=== PATIENT | male | born 1970 | race African-American/Black ===

== ENCOUNTER 2018-09-30 12:13 | Inpatient (IN) ==
[2018-09-30 12:43] LABS: BASO# 0.01 X1000 (0.0-0.2); BASO% 0.1 % (0.0-0.8); EOS# 0.01 X1000 (0.0-0.7); EOS% 0.1 % (0.0-10.0); HEMOGLOBIN 17.8 g/dL (14.0-18.0); IMM GRAN# 0.02 X1000 (0.0-0.04); IMM GRAN% 0.2 % (0.0-0.5); LYMPH# 0.39 X1000 (1.2-3.4); LYMPH% 3.1 % (20.5-51.1); MCH 32.4 PG (27-31); MCHC 34.2 g/dL (33-37); MCV 94.7 FL (81-99); MONO# 0.36 X1000 (0.11-0.59); MONO% 2.9 % (1.7-9.3); MPV 11.4 FL (7.4-10.4); NEUT# 11.81 X1000 (1.4-6.5); NEUT% 93.6 % (42.2-75.2); PLT 255 X1000 (130-400); RBC 5.49 XMIL (4.7-6.1); RDW 11.8 % (11.5-14.5)
[2018-09-30 12:57] LABS: AGAP 14; ALB/GLOB RATIO 1.6; ALKALINE PHOSPHATASE 100 U/L (32-122); BUN 10 mg/dL (8-22); CALCIUM 9.7 mg/dL (8.8-10.2); CHLORIDE 96 mmol/L (98-107); COSMO 290; CREATININE 1.1 mg/dL (0.7-1.2); ESTIMATED GFR > 60; GLUCOSE 244 mg/dL (70-104); GOT 14 U/L (10-34); GPT 18 U/L (10-44); LIPASE 186 U/L (13-60); POTASSIUM 3.8 mmol/L (3.5-5.1); SODIUM 142 mmol/L (136-145); TCO2 32 mmol/L (25-35); TOTAL BILIRUBIN 0.95 mg/dL (0.20-1.00); TOTAL PROTEIN 8.1 g/dL (6.3-8.3)
[2018-09-30 13:12] LABS: LYMPHS 2 % (21-51); MONO 2 % (1-9); SEGS 96 % (42-75)
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
[2018-09-30] MEDS ORDERED: ZOFRAN IV ONE (14:39)
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
[2018-09-30] MEDS ORDERED: TORADOL IV ONE (15:31)
[2018-09-30] MEDS ORDERED: G.I. COCKTAIL PO ONE (15:51)
--- NOTE | 2018-09-30 16:11 | EKG Report ---
Test Performed on : 09/30/2018 3:40:41 PM Test Reason : CP Blood Pressure : / mmHG Vent. Rate : 063 BPM Atrial Rate : 063 BPM P-R Int : 152 ms QRS Dur : 072 ms QT Int : 590 ms P-R-T Axes : 043 053 064 degrees QTc Int : 603 ms Normal sinus rhythm. Septal infarct , age undetermined Prolonged QT Abnormal ECG When compared with ECG of 01-MAR-2018 07:41, Septal infarct is now present QT has lengthened Unconfirmed Result
[2018-09-30 16:13] LABS: URINE SOURCE CLEAN CATCH
[2018-09-30 16:26] LABS: BILIRUBIN URINE NEGATIVE (NEGATIVE); BLOOD URINE NEGATIVE (NEGATIVE); COLOR YELLOW; GLUCOSE URINE 500 mg/dL (NEGATIVE); KETONE URINE NEGATIVE (NEGATIVE); LEUKOCYTES URINE NEGATIVE (NEGATIVE); NITRITE URINE NEGATIVE (NEGATIVE); PROTEIN URINE 200 mg/dL (NEGATIVE); TURBIDITY URINE CLEAR (CLEAR); UROBILINOGEN URINE NORMAL (NORMAL)
[2018-09-30 16:28] LABS: UR EPITHELIAL CELLS <10 /HPF (<10); URINE BACTERIA NEGATIVE /HPF; URINE RBC <10 /HPF (<10); URINE WBC <10 /HPF (<10)
[2018-09-30 16:42] LABS: UR AMPHETAMINES QUAL NONE DETECTED (NONE DETECT); UR BARBITUATES QUAL NONE DETECTED (NONE DETECT); UR BENZODIAZEPIN QUAL NONE DETECTED (NONE DETECT); UR CANNABINOIDS QUAL PRESUMPTIVE POSITIVE (NONE DETECT); UR COCAINE QUAL PRESUMPTIVE POSITIVE (NONE DETECT); UR METHADONE QUAL NONE DETECTED (NONE DETECT); UR OPIATES QUAL NONE DETECTED (NONE DETECT); UR OXYCODONE QUAL NONE DETECTED (NONE DETECT); UR PCP QUAL NONE DETECTED (NONE DETECT)
[2018-09-30] MEDS ORDERED: PHENERGAN IV ONE (16:53)
[2018-09-30] MEDS ORDERED: SODIUM CHLORIDE 0.9% INJ ONE (16:53)
[2018-09-30] MEDS ORDERED: LR 1,000 ML IV ONE (16:54)
[2018-09-30] MEDS ORDERED: APRESOLINE IV ONE (18:06)
[2018-09-30] MEDS ORDERED: LOPRESSOR IV SCH (19:00)
--- NOTE | 2018-09-30 19:18 | HISTORY AND PHYSICAL ---
HISTORY OF PRESENT ILLNESS: Mr. Mckay is a 48-year-old male with a history of alcohol abuse, hypertension, and diabetes mellitus type 2, who presented to the ER with a chief complaint of a 1- week history of abdominal pain, nausea and vomiting. The patient reports a poor appetite. He states that he drinks alcohol on the weekends and smokes cigarettes occasionally. The patient has not been able to keep anything down as far as fluids or solids. He denies having chest pain, shortness of breath, but he does complain of headache and dizziness. He also states that he has not been urinating as much as usual. In the ER, a CT of the abdomen and pelvis was done that revealed mild gastritis. The patient was noted to have a lipase of 186. Also the drug tox screen was positive for cocaine and cannabinoids. PAST MEDICAL HISTORY: 1. Asthma. 2. Gastroesophageal reflux disease. 3. Diabetes mellitus type 2. 4. Hypertension. 5. Tobacco dependence. 6. Alcohol dependence. 7. Benign prostatic hyperplasia. PAST SURGICAL HISTORY: Toenail removal. FAMILY HISTORY: Reviewed and noncontributory. SOCIAL HISTORY: The patient smokes cigarettes daily. He also uses alcohol on the weekends. He denies illicit drug use. However, his drug tox screen was positive for cocaine and cannabinoids. ALLERGIES: No known drug allergies. REVIEW OF SYSTEMS: A 12-point review of systems has been performed. MEDICATIONS: Unable to obtain at this time. PHYSICAL EXAMINATION: VITAL SIGNS: Temperature 98.6 degrees, blood pressure 178/94, heart rate 64, respirations 20, O2 saturation is 95% on 2 L nasal cannula. GENERAL: This is a chronically ill-appearing middle-aged male lying in bed in no acute distress. HEART: S1, S2 normal. Bradycardic. LUNGS: Clear to auscultation bilaterally. ABDOMEN: Positive bowel sounds. Soft. Tenderness in the epigastric region. EXTREMITIES: No edema. No cyanosis. No calf tenderness. NEUROLOGIC: The patient is lethargic, but is able to give move all extremities. LABS: White blood cell count 12, hemoglobin 17, hematocrit 52, platelets 255. Sodium 142, potassium 3.8, chloride 96, CO2 32, BUN 10, creatinine 1.1, glucose 244, lipase 186, lactate 3.2. Drug tox screen positive for cocaine and cannabinoids. IMAGING: CT of the abdomen and pelvis shows mild gastritis and spinal stenosis at L4-L5. Colonic diverticulosis. Chest x-ray shows shallow inspiration. ASSESSMENT AND PLAN: 1. Chronic pancreatitis. We will start the patient on IV fluids. He will be made NPO. We will also start IV Protonix, antiemetics and pain medication. 2. Alcohol dependence. The patient has been counseled about alcohol cessation. 3. Tobacco dependence. The patient has been counseled about tobacco cessation. 4. Diabetes mellitus, insulin dependent. We will start the patient on sliding scale insulin and monitor the Accu-Cheks before meals and at bedtime. 5. Hypertension. Since the patient is NPO, we will cover the patient with IV hydralazine. 6. Leukocytosis. This may be reactive. No obvious source of infection has been found. We will monitor closely. We will hold off on antibiotic administration at this time. 7. Gastrointestinal prophylaxis. The patient will be started on IV Protonix. 8. Deep vein thrombosis prophylaxis. We will start the patient on Lovenox. cc: Gerri Amos MD MTDD
[2018-09-30] MEDS: NS 1,000 ML IV SCH (20:48)
[2018-09-30] MEDS: HUMULIN R SUBQ SCH (21:13)
[2018-09-30] MEDS: APRESOLINE IV PRN (23:01)
[2018-10-01] MEDS: ZOFRAN IV PRN ×4 (02:26→21:46)
[2018-10-01 06:35] LABS: HEMATOCRIT 50.2 % (42.0-52.0); HEMOGLOBIN 17.2 g/dL (14.0-18.0); MCH 33.2 PG (27-31); MCHC 34.3 g/dL (33-37); MCV 96.9 FL (81-99); RBC 5.18 XMIL (4.7-6.1); RDW 12.3 % (11.5-14.5); WBC 14.02 X1000 (4.8-10.8)
[2018-10-01] MEDS: HUMULIN R SUBQ SCH ×4 (06:45→21:51)
[2018-10-01 06:54] LABS: AGAP 17; ALB/GLOB RATIO 1.6; ALBUMIN 4.5 g/dL (3.5-5.0); ALKALINE PHOSPHATASE 85 U/L (32-122); BUN 12 mg/dL (8-22); CALCIUM 9.4 mg/dL (8.8-10.2); CHLORIDE 100 mmol/L (98-107); COSMO 293; CREATININE 1.1 mg/dL (0.7-1.2); ESTIMATED GFR > 60; GLUCOSE 183 mg/dL (70-104); GOT 12 U/L (10-34); GPT 14 U/L (10-44); POTASSIUM 3.4 mmol/L (3.5-5.1); SODIUM 145 mmol/L (136-145); TCO2 28 mmol/L (25-35); TOTAL BILIRUBIN 1.17 mg/dL (0.20-1.00); TOTAL PROTEIN 7.3 g/dL (6.3-8.3)
[2018-10-01] MEDS: SODIUM CHLORIDE 0.9% INJ SCH (07:43)
[2018-10-01] MEDS: PROTONIX IV SCH (07:43)
[2018-10-01] MEDS: APRESOLINE IV PRN (07:43)
[2018-10-01] MEDS: ZOSYN 3.375 GM in NS 50 ML IV SCH ×3 (07:43→19:42)
[2018-10-01] MEDS: NS 1,000 ML IV SCH (09:40)
[2018-10-01] MEDS: POTASSIUM CHLORIDE 20 MEQ/SWI 20 MEQ/100 ML IVPB IV SCH ×2 (09:40→14:06)
[2018-10-01] MEDS: LOVENOX SUBQ SCH (09:41)
[2018-10-01] MEDS ORDERED: THORAZINE 25 MG in NS 25 ML IV ONE (10:00)
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
[2018-10-01] MEDS: DILAUDID IV PRN ×3 (10:31→21:46)
[2018-10-01] MEDS: NICODERM PATCH TD SCH (10:31)
--- NOTE | 2018-10-01 16:24 | GASTROENTEROLOGY CONSULTATION ---
DATE: 10/01/2018 REASON FOR CONSULTATION: Abdominal pain, pancreatitis. HISTORY OF PRESENT ILLNESS: This is a 48-year-old male who reports onset of symptoms over the last 24 hours. He has reported nausea, vomiting and abdominal pain. His girlfriend is at the bedside. The patient states his symptoms started on Monday evening around 10 p.m., progressed through the day on Monday and he came in for evaluation. Patient states so far today he has had a small amount of vomiting at least 5 times. Abdominal pain has improved with pain medication. At the worst pain he described the pain on a pain scale of 1 to 10 as a 20. Currently after pain medication he reports the pain level as a 7. The patient has never been seen by a china painter. He has denied reflux or heartburn. No reported chest pain or shortness of breath. He does report alcohol use along with daily marijuana use. His drug screen was positive for cocaine and marijuana. Patient still has his gallbladder. PAST MEDICAL HISTORY: Diabetes type 2, hypertension, benign prostatic hypertrophy, history of asthma, history of GERD. PAST SURGICAL HISTORY: Toenail removal. ALLERGIES: No known drug allergies. HOME MEDICATIONS: Xanax 1 mg twice a day, Flexeril 10 mg twice a day, [place] 10/325 mg 1 twice a day, insulin NovoLog 35 units subcu before breakfast, NovoLog 60 units before supper, Glucophage 500 mg twice a day, Prilosec 20 mg daily, Flomax 0.4 mg daily. SOCIAL HISTORY: He has 8 children. He works in [employer]. He smokes about a pack of cigarettes every 2 days. Reports using alcohol usually on the weekends. Reports marijuana use almost daily. Denies usual cocaine use but his drug screen was positive. He states he was around someone this weekend that used cocaine. REVIEW OF SYSTEMS: Per history of present illness. PHYSICAL EXAMINATION: Vital Signs: Temperature 98.3 degrees, pulse 111, respirations 20, blood pressure 141/88. General: Patient is awake, alert, in no acute distress. HEENT: Normocephalic, atraumatic. Pupils equal, round, reactive to light. Respiratory: Lung sounds essentially clear bilaterally. Cardiovascular: Regular rate and rhythm. Abdomen: Was mildly tender with palpation otherwise soft with positive bowel sounds. Extremities: No lower extremity edema noted. He did have some tenderness to the left foot with palpation. Neurological: Cranial nerves 2-12 grossly intact. The patient is awake, alert, oriented to person, place, and time. DIAGNOSTIC RESULTS: Laboratory. Hematology. WBC 14.02, hemoglobin 17.2, hematocrit 50.2, MCV 96.9, platelets 259,000. Chemistry. Sodium 145, potassium 3.4, chloride 100, CO2 28, BUN 12, creatinine 1.1, glucose 183, calcium 9.4, total bilirubin 1.17, AST 12, ALT 14, alkaline phosphatase 85, lipase 204. PSA 0.61. CT scan of the abdomen and pelvis showed possible mild gastritis, no bowel obstruction. No evidence of appendicitis. Colonic diverticulosis with no evidence of diverticulitis. No abscess or free air. Lumbar changes to the spine. ASSESSMENT AND PLAN: 1. Abdominal pain. 2. Pancreatitis. Patient will be held n.p.o. except for sips of water and ice chips. 3. Diabetes. 4. Hypertension. 5. Alcohol and tobacco use along with marijuana use. Drug screen also positive for cocaine. Continue symptomatic treatment. Continue p.r.n. medications for pain. We will order an ultrasound of the abdomen with attention to gallbladder and common bile duct. Repeat amylase and lipase tomorrow. Further plans will be made according to his progress. I have discussed this case with Dr. Méndez. Thank you for this consultation. Dictated by MANDY Rojas for Thiago Méndez MD cc: MANDY Herbert MD
--- NOTE | 2018-10-01 16:54 | Diag Imaging Result Doc PS360 ---
EXAM: US ABDOMEN-COMPLETE 10/01/2018 HISTORY: abd pain, pancreatitis, attn gb/cbd TECHNIQUE: Abdominal ultrasound COMMENT: The pancreatic head and body are normal in appearance. The tail is obscured. The aorta and inferior vena cava are normal in appearance where they're visible. The liver is unremarkable. The gallbladder is clear and nontender. The common bile duct is not distended at less than 6 mm. There is antegrade flow in the portal vein. The kidneys are without evidence of hydronephrosis or mass. The spleen is not enlarged and contains multiple granulomata. There are no abnormal fluid collections. IMPRESSION: No evidence of acute intraabdominal disease. Electronically signed by Douglas Nash 10/01/2018 4:51 PM
--- NOTE | 2018-10-01 17:50 | PROGRESS NOTE ---
DATE: 10/01/2018 SUBJECTIVE: The patient complains of epigastric pain as well as nausea. OBJECTIVE: Vital Signs: Temperature 98.1 degrees, blood pressure 140/74, heart rate 87, respirations 20, O2 saturation 100% on room air. General: This is a middle-aged male sitting at the edge of the bed in no acute distress. Heart: S1, S2 normal. Regular rate and rhythm. Lungs: Equal air entry bilaterally. No wheezing. No rales. No rhonchi. Abdomen: Positive bowel sounds. Soft. Epigastric tenderness. Extremities: No edema. No cyanosis. Neurologic: The patient is alert and oriented x4. LABORATORY DATA: White blood cell count 14, hemoglobin 17, hematocrit 50, platelets 259,000, sodium 145, potassium 3.4, chloride 100, CO2 28, BUN 12, creatinine 1.1, glucose 183. ASSESSMENT AND PLAN: 1. Pancreatitis. Continue with n.p.o. status, IV fluids, p.r.n. antiemetics and pain medication. GI is following. 2. Polysubstance abuse. The patient has been counseled about cessation. 3. Hypertension. Stable. 4. Diabetes mellitus type 2. Continue on sliding scale insulin. 5. Gastrointestinal prophylaxis. Continue on Protonix. 6. Deep vein thrombosis prophylaxis. Continue on Lovenox. cc: Gerri Amos MD
[2018-10-02] MEDS: ZOSYN 3.375 GM in NS 50 ML IV SCH ×4 (00:03→18:27)
[2018-10-02] MEDS: NS 1,000 ML IV SCH ×3 (00:04→20:40)
[2018-10-02] MEDS: DILAUDID IV PRN ×6 (02:14→20:33)
[2018-10-02] MEDS: ZOFRAN IV PRN ×3 (02:14→20:33)
[2018-10-02 04:38] LABS: ALLEN TEST YES; BE 3.1 mmoll (-3.0-3.0); BLOOD TYPE ARTERIAL; HCO3-(ACT) 27.2 mmoll (20.0-26.0); METHB 1.1 % (0.0-1.5); MODALITY ROOM AIR; O2(CT) 20.9 mL/dL (15.0-23.0); O2HB 92.8 % (95.0-99.0); PCO2(98.6) 45 mmHg (35-45); PO2(98.6) 73 mmHg (60-100); SAMPLE BLOOD; SAO2 96.3 % (95.0-100.0); pH(98.6) 7.41 (7.35-7.45)
[2018-10-02 06:04] LABS: HEMATOCRIT 45.7 % (42.0-52.0); HEMOGLOBIN 15.3 g/dL (14.0-18.0); MCH 33.6 PG (27-31); MCHC 33.5 g/dL (33-37); MCV 100.2 FL (81-99); MPV 11.8 FL (7.4-10.4); RBC 4.56 XMIL (4.7-6.1); RDW 12.4 % (11.5-14.5); WBC 7.95 X1000 (4.8-10.8)
[2018-10-02 06:12] LABS: MAGNESIUM 1.9 mg/dL (1.5-2.7)
[2018-10-02] MEDS: HUMULIN R SUBQ SCH ×3 (06:30→16:51)
[2018-10-02] MEDS: PROTONIX IV SCH (06:40)
[2018-10-02] MEDS: SODIUM CHLORIDE 0.9% INJ SCH (06:40)
[2018-10-02 06:53] LABS: POTASSIUM 3.4 mmol/L (3.5-5.1); SODIUM 141 mmol/L (136-145)
[2018-10-02 06:54] LABS: AGAP 13; ALB/GLOB RATIO 1.4; ALBUMIN 3.6 g/dL (3.5-5.0); ALKALINE PHOSPHATASE 68 U/L (32-122); BUN 12 mg/dL (8-22); CALCIUM 8.6 mg/dL (8.8-10.2); CHLORIDE 103 mmol/L (98-107); COSMO 284; CREATININE 1.1 mg/dL (0.7-1.2); ESTIMATED GFR > 60; GLUCOSE 149 mg/dL (70-104); GOT 13 U/L (10-34); GPT 12 U/L (10-44); TCO2 25 mmol/L (25-35); TOTAL BILIRUBIN 1.74 mg/dL (0.20-1.00); TOTAL PROTEIN 6.2 g/dL (6.3-8.3)
[2018-10-02] MEDS: LOVENOX SUBQ SCH ×2 (07:51→08:12)
[2018-10-02] MEDS: NICODERM PATCH TD SCH ×2 (07:51→08:12)
[2018-10-02] MEDS ORDERED: COLACE PO ONE (09:21)
[2018-10-02] MEDS: FLOMAX PO SCH (09:59)
[2018-10-02] MEDS: NORVASC PO SCH ×2 (09:59→20:32)
[2018-10-02] MEDS: MIRALAX PO SCH (10:00)
[2018-10-02] MEDS: XANAX PO SCH ×2 (10:00→20:32)
--- NOTE | 2018-10-02 12:51 | GASTROENTEROLOGY PROGRESS NOTE ---
DATE: 10/02/2018 SUBJECTIVE: Patient states he is still having abdominal pain. An ultrasound was done yesterday that was normal. There was no evidence of gallbladder abnormality. Common bile duct was normal. There was no evidence of acute intra-abdominal disease. His amylase and lipase are normal today. OBJECTIVE: Vital Signs: Temperature 98.0 degrees, pulse 80, respirations 16, blood pressure 135/88. General: Patient is awake, alert, no acute distress. He is complaining of abdominal pain. LABORATORY: Hematology: WBC 7.95, hemoglobin 15.3, hematocrit 45.7, MCV 100.2, platelets 211,000. Chemistry: Sodium 141, potassium 3.4, chloride 103, CO2 25, BUN 12, creatinine 1.1, glucose 149, calcium 8.6, total bilirubin 1.74, AST 13, ALT 12, alkaline phosphatase 68, amylase 56, lipase 21. ASSESSMENT AND PLAN: 1. Pancreatitis. Amylase and lipase are normal today. 2. Abdominal pain. Would recommend decreasing his pain medication. 3. Other medical problems: Hypertension, diabetes. Continue on IV fluids, p.r.n. medications but recommend decreasing his pain medication if possible. Repeat amylase and lipase tomorrow. Discussed with the patient importance of stopping alcohol along with marijuana and cocaine use, and including alcohol cessation and smoking cessation. Will continue to follow. Further plans to be made according to his progress. I have discussed this case with Dr. Méndez. Dictated by MANDY Rojas for Thiago Méndez MD cc: MANDY Herbert MD
--- NOTE | 2018-10-02 13:43 | PROGRESS NOTE ---
DATE: 10/02/2018 SUBJECTIVE: The patient continues to complain of epigastric pain. He states that he has not had a bowel movement in several days. He also reports some nausea. OBJECTIVE: Vital Signs: Temperature 98 degrees, blood pressure 135/88, heart rate 80, respirations 16, O2 saturation 98% on room air. General: This is a middle-aged male sitting up in bed in no acute distress. Heart: S1, S2 normal. Regular rate and rhythm. Lungs: Equal air entry bilaterally. No wheezing. No rales. No rhonchi. Abdomen: Positive bowel sounds. Soft, nontender, nondistended. Extremities: No edema, no cyanosis. Neurologic: The patient is alert and oriented x3. LABS: White blood cell count 7.9, hemoglobin 15, hematocrit 45, platelets 211,000. Sodium 141, potassium 3.4, chloride 103, CO2 25, BUN 12, creatinine 1.1, glucose 149, magnesium 1.9. ASSESSMENT AND PLAN: 1. Pancreatitis. Slowly improving. We will try the patient on clear liquids and see how he does. 2. Polysubstance abuse. The patient has been counseled about cessation. 3. Constipation. Will start the patient on MiraLAX and Colace. 4. Hypertension. Stable. 5. Diabetes mellitus type 2. Continue on insulin sliding scale for now. 6. Deep vein thrombosis prophylaxis. Continue on Lovenox. cc: Gerri Amos MD MTDD
[2018-10-03] MEDS: ZOSYN 3.375 GM in NS 50 ML IV SCH ×2 (01:03→06:05)
[2018-10-03] MEDS: DILAUDID IV PRN ×7 (01:03→21:32)
[2018-10-03] MEDS: HUMULIN R SUBQ SCH ×5 (01:04→20:13)
[2018-10-03] MEDS: NS 1,000 ML IV SCH ×3 (05:53→20:34)
[2018-10-03] MEDS: ZOFRAN IV PRN (05:55)
[2018-10-03 05:57] LABS: HEMOGLOBIN 14.9 g/dL (14.0-18.0); MCH 33.7 PG (27-31); MCHC 34.7 g/dL (33-37); MCV 97.3 FL (81-99); MPV 11.3 FL (7.4-10.4); RBC 4.42 XMIL (4.7-6.1); RDW 11.6 % (11.5-14.5); WBC 5.73 X1000 (4.8-10.8)
[2018-10-03 06:23] LABS: AGAP 11; ALB/GLOB RATIO 1.4; ALBUMIN 3.4 g/dL (3.5-5.0); ALKALINE PHOSPHATASE 58 U/L (32-122); BUN 8 mg/dL (8-22); CALCIUM 8.5 mg/dL (8.8-10.2); CHLORIDE 103 mmol/L (98-107); COSMO 279; ESTIMATED GFR > 60; GLUCOSE 128 mg/dL (70-104); GOT 14 U/L (10-34); GPT 12 U/L (10-44); POTASSIUM 3.4 mmol/L (3.5-5.1); SODIUM 140 mmol/L (136-145); TCO2 26 mmol/L (25-35); TOTAL BILIRUBIN 1.44 mg/dL (0.20-1.00); TOTAL PROTEIN 5.9 g/dL (6.3-8.3)
[2018-10-03] MEDS: PROTONIX IV SCH (06:23)
[2018-10-03] MEDS ORDERED: KLOR-CON PO ONE (06:45)
[2018-10-03] MEDS: NORVASC PO SCH ×2 (10:03→20:27)
[2018-10-03] MEDS: XANAX PO SCH ×2 (10:03→20:27)
[2018-10-03] MEDS: FLOMAX PO SCH (10:04)
[2018-10-03] MEDS: MIRALAX PO SCH ×2 (10:04→20:27)
[2018-10-03] MEDS: NICODERM PATCH TD SCH (10:04)
[2018-10-03] MEDS: LOVENOX SUBQ SCH (10:05)
[2018-10-03] MEDS ORDERED: LACTULOSE PO ONE (11:07)
[2018-10-03] MEDS ORDERED: DULCOLAX PR ONE (11:08)
[2018-10-03] MEDS ORDERED: CITRATE OF MAGNESIA PO ONE (11:09)
--- NOTE | 2018-10-03 14:34 | Diag Imaging Result Doc PS360 ---
EXAM: MRI LUMBAR SPINE W/O CONTRAST 10/03/2018 HISTORY: lumbar radiculopathy TECHNIQUE: T1-T2 and STIR sagittal, T1 and T2 axial COMMENT: There is disc desiccation at the L4-5 and L5-S1 levels. There is no evidence of intrathecal mass or signal abnormality. At the L1-2 level there is no evidence of spinal or foraminal stenosis. At L2-3 there is no spinal or foraminal stenosis. At L3-4 there is no evidence of spinal or foraminal stenosis. At L4-5 there is minimal anterolisthesis of L4 on L5 and hypertrophic facet disease is present bilaterally. There is a mild degree of spinal stenosis. The foramina appear to be patent. At the L5-S1 level there is posterior disc bulge particularly slightly to the right of the midline. The foramina are narrowed bilaterally. IMPRESSION: Degenerative disc disease with severe facet arthropathy and mild spondylolisthesis and spinal stenosis at L4-5 and protruded nucleus pulposus at L5-S1 with bilateral foraminal stenosis. Electronically signed by Douglas Nash 10/03/2018 2:32 PM
[2018-10-03] MEDS: NEURONTIN PO SCH ×2 (15:14→18:49)
--- NOTE | 2018-10-03 15:23 | PROGRESS NOTE ---
DATE: 10/03/2018 SUBJECTIVE: The patient states that he has not had a bowel movement in a week. He continues to complain of abdominal pain, numbness and tingling in his feet. OBJECTIVE: Vital Signs: Temperature 98 degrees, blood pressure 164/99, heart rate 77, respirations 14, and O2 saturation 99% on room air. General: This is a middle- aged male sitting in a chair in no acute distress. Heart: S1, S2 normal. Regular rate and rhythm. Lungs: Equal air entry bilaterally. No wheezing. No rales. No rhonchi. Abdomen: Positive bowel sounds. Soft, nontender, and nondistended. Extremities: No edema. No cyanosis. No calf tenderness. Neurologic: The patient is alert and oriented x4. LABORATORY: Sodium 140, potassium 3.4, chloride 103, CO2 26, BUN 8, creatinine 1, glucose 128, and lipase 45. MRI of the lumbar spine revealed degenerative disk disease with severe facet arthropathy and spinal stenosis at L4-L5, and a protruded nucleus pulposus at L5-S1 with bilateral foraminal stenosis. ASSESSMENT AND PLAN: 1. Pancreatitis. Improved. The patient is currently on a clear liquid diet. He has not had a bowel movement yet. We will add additional laxative therapy. 2. Chronic constipation. Several laxatives have been started. We will monitor the patient's response. 3. Hypertension. We will start the patient on lisinopril. 4. Diabetic neuropathy. We will start the patient on gabapentin. 5. Lumbar spinal stenosis. Aware. The patient will likely need to be referred to neurosurgeon as an outpatient. 6. Polysubstance abuse. The patient has been counseled about cessation. 7. Hypokalemia. Will replace the potassium. 8. Diabetes mellitus type 2. Continue on sliding scale insulin. 9. Deep vein thrombosis prophylaxis. Continue on Lovenox. cc: Gerri Amos MD MTDD
[2018-10-03] MEDS: LACTULOSE PO SCH (20:27)
--- NOTE | 2018-10-03 20:49 | GASTROENTEROLOGY PROGRESS NOTE ---
DATE: 10/03/2018 SUBJECTIVE: The patient was up walking around in his room. He is still complaining of pain, but reports it is more of back pain and lower extremity pain. His abdominal pain seems to have improved, except he is complaining of constipation. He has not had a good bowel movement in approximately a week. He was started on some laxatives yesterday with no results. He already has additional laxatives ordered today, including magnesium citrate, along with lactulose and a Dulcolax suppository. His amylase and lipase are normal today. He has tolerated a clear liquid diet. OBJECTIVE: Vital Signs: Temperature 98.0 degrees, pulse 77, respirations 14, blood pressure 164/99. General: The patient is awake and alert in no acute distress. He was up walking in the room at the time of my evaluation. He is complaining more of back pain and lower extremity pain and issues with constipation. LABORATORY: Hematology: WBC 5.73, hemoglobin 14.9, hematocrit 43.0, MCV 97.3, platelet 198,000. Chemistry: Sodium 140, potassium 3.4, chloride 103, CO2 26, BUN 8, creatinine 1.0, glucose 128, total bilirubin 1.44, AST 14, ALT 12, alkaline phosphatase 58, amylase 65, lipase 45. ASSESSMENT AND PLAN: 1. Pancreatitis, resolved. 2. Constipation. Patient has been given laxatives today. Recommend he try and decrease his pain medication. Another option would be opioid induced constipation medication like Movantik if his constipation does not improve. 3. Back pain with a lumbar spine MRI showing degenerative disk disease, with severe arthropathy and spinal stenosis. Hospitalist is following. 4. We will continue to follow during his hospital course. Continue current laxative regimen and would add Movantik if there is no improvement. Recommend decreasing his pain medication to the least amount possible. We will try advancing his diet to a full liquid diet if he tolerates. Further plans will be made as needed. I have discussed this case with Dr. Méndez. Dictated by MANDY Rojas for Thiago Méndez MD cc: MANDY Herbert MD
[2018-10-03] MEDS ORDERED: COREG PO SCH (21:00)
[2018-10-04] MEDS ORDERED: ATIVAN IV ONE (00:33)
[2018-10-04 06:09] LABS: HEMOGLOBIN 15.9 g/dL (14.0-18.0); MCH 33.8 PG (27-31); MCHC 35.3 g/dL (33-37); MCV 95.7 FL (81-99); MPV 11.5 FL (7.4-10.4); RBC 4.7 XMIL (4.7-6.1); RDW 11.4 % (11.5-14.5); WBC 5.47 X1000 (4.8-10.8)
[2018-10-04 06:31] LABS: AGAP 12; ALBUMIN 4.2 g/dL (3.5-5.0); BUN 10 mg/dL (8-22); CALCIUM 9.1 mg/dL (8.8-10.2); CHLORIDE 102 mmol/L (98-107); COSMO 279; CREATININE 1.1 mg/dL (0.7-1.2); ESTIMATED GFR > 60; GLUCOSE 182 mg/dL (70-104); POTASSIUM 3.9 mmol/L (3.5-5.1); SODIUM 138 mmol/L (136-145); TCO2 24 mmol/L (25-35); TOTAL BILIRUBIN 0.66 mg/dL (0.20-1.00); TOTAL PROTEIN 7.4 g/dL (6.3-8.3)
[2018-10-04 06:32] LABS: ALB/GLOB RATIO 1.3; ALKALINE PHOSPHATASE 75 U/L (32-122); GOT 23 U/L (10-34); GPT 22 U/L (10-44)
[2018-10-04] MEDS: HUMULIN R SUBQ SCH ×3 (06:54→16:25)
[2018-10-04] MEDS: PROTONIX IV SCH (06:54)
[2018-10-04] MEDS: DILAUDID IV PRN ×2 (07:23→14:19)
[2018-10-04] MEDS ORDERED: PRINIVIL PO SCH (09:00)
[2018-10-04] MEDS: MIRALAX PO SCH (09:09)
[2018-10-04] MEDS: NORVASC PO SCH (09:09)
[2018-10-04] MEDS: XANAX PO SCH (09:09)
[2018-10-04] MEDS: NEURONTIN PO SCH ×3 (09:09→18:38)
[2018-10-04] MEDS: FLOMAX PO SCH (09:09)
[2018-10-04] MEDS: LOVENOX SUBQ SCH (09:10)
[2018-10-04] MEDS: LACTULOSE PO SCH (09:10)
[2018-10-04] MEDS: NICODERM PATCH TD SCH (09:10)
[2018-10-04] MEDS: ZOFRAN IV PRN (14:19)
[2018-10-04] MEDS: NS 1,000 ML IV SCH ×2 (14:29→14:30)
[2018-10-04 15:31] VITALS: BP 138/122
--- NOTE | 2018-10-04 17:25 | PROGRESS NOTE ---
DATE: 10/04/2018 SUBJECTIVE: This morning Mr. Mckay refers to be doing fairly okay. He has been tolerating his full liquid diet. OBJECTIVE: Vital signs: Blood pressure is 138/112, pulse is 82, respirations 18, temperature 98.0 degrees. Patient is saturating 100% on room air. General: Mr. Mckay is a 48-year-old gentleman. He is in bed, no distress. HEENT: Mucosa is pink and moist. Anicteric. Acyanotic. Neck: Supple. Chest: Clear to auscultation. Cardiovascular: Regular rate and rhythm. Abdomen: Soft, distended. Bowel sounds present. Extremities: No pedal edema. FLOOR COVERING LAYER: Patient is awake, alert, and oriented. LABORATORY DATA: Has been reviewed, completely normal. Lipase has normalized, currently at 27. The patient's urine toxicology was positive for cocaine and cannabis. A lumbar MRI which was done yesterday shows degenerative disease with severe facet arthropathy with mild spondylolisthesis and spinal stenosis at L4-L5, protrude nucleus proposes at L5-S1, and bilateral foraminal stenosis. ASSESSMENT: 1. Suspected alcohol-induced pancreatitis, resolved. 2. Chronic constipation, improved. 3. Diabetes with diabetic neuropathy. 4. Polysubstance abuse with urine drug screen positive for cocaine and cannabinoids. 5. Lumbar spine diskopathy with spinal stenosis. Currently patient does not have any neurological compromise and he has been advised to follow up with neurosurgery upon discharge. PLAN: So in general, I think Mr. Mckay is doing a lot better. We are going to put him on a regular diet, discontinue the IV fluids, get him to be more mobile, and we will get him discharged tomorrow morning. cc: Enrico Britton MD
[2018-10-04] MEDS ORDERED: DILAUDID IV PRN (18:00)
[2018-10-04] MEDS ORDERED: PRILOSEC PO SCH (21:00)
--- NOTE | 2018-10-05 09:37 | DISCHARGE SUMMARY ---
ADMISSION DATE: 09/30/2018 DISCHARGE DATE: 10/04/2018 DISPOSITION: Home FOLLOWUP: 1. Dr. Hanley 2. Dr. Joel ADMISSION DIAGNOSES: 1. Chronic pancreatitis. 2. Alcohol dependence. 3. Tobacco dependence. 4. Diabetes mellitus. DIAGNOSES AT THE TIME OF DISCHARGE: 1. Acute on chronic pancreatitis. 2. Alcohol-induced pancreatitis. 3. Alcohol abuse. 4. Diabetic with diabetic neuropathy. 5. Polysubstance abuse with urine drug screen positive for cocaine and cannabinoids. 6. Hypertension. 7. Lumbar discopathy with spinal stenosis. Patient has been advised to follow up with neurosurgeon. DISCHARGE MEDICATIONS: 1. Xanax 1 mg b.i.d. 2. Flexeril 10 mg b.i.d. 3. Omeprazole 20 mg p.o. daily. 4. Tamsulosin 0.4 p.o. daily. 5. Metformin 500 b.i.d. 6. Lisinopril 10 mg p.o. daily. 7. Amlodipine 2.5 b.i.d. 8. Insulin glargine 15 units subcutaneous daily. PRESENTING COMPLAINT: Abdominal pain. HISTORY OF PRESENTING COMPLAINT: Mr. Mckay is a 48-year-old gentleman with a history of diabetes, alcohol dependence, tobacco dependence, pancreatitis in the past, came in because of abdominal pain. The patient was evaluated was found to be to have a lipase of 186, diagnosed with acute on chronic pancreatitis and was admitted for further medical care. HOSPITAL COURSE: 1. Mr. Mckay was admitted to the medical floor, was fluid resuscitated. Pain was controlled. He was kept initially NPO and his pancreatitis got better. Lipase was trended, that got normalized. He was started on some clears, which was gradually uptitrated. He is currently taking full liquid diet and he seems to be tolerating. He is now pain free. Early on today, we saw him. We thought he could be discharged. However, he was saying nobody could come and pick him up. However later on he said a family member is coming for him and we think he is fairly stable for discharge. During the hospital course, all his other comorbidities including hypertension were all echo managed. Mr. Mckay also did complain of some back pain. An MRI of the lumbar spine was done which shows degenerative discopathy with some spinal stenosis at L4-L5-L5-S1. He is currently completely neurovascularly intact except for some polyneuropathy from his diabetes, so he has been advised to follow up with the neurosurgeon in [place] as outpatient. 2. Other discharge instructions have been discussed with him. He voiced understanding. TIME SPENT FOR DISCHARGE: 35 minutes. Please refer to the details of my progress note as well for today. cc: MD Esteban Hancock MD Manish Arora, MD
== END 2018-10-04 19:16 | disposition home or self-care (01) | DRG 439 ==
LOC: ED 12:13 → 4N 20:24 → SUATTDRO 20:24
PROVIDERS: ATTEND Internal Medicine

== ENCOUNTER 2018-10-11 04:03 | Inpatient (IN) ==
[2018-10-11] MEDS ORDERED: NS 1,000 ML IV ONE ×2 (04:15→05:58)
[2018-10-11] MEDS ORDERED: MORPHINE IV ONE (04:15)
[2018-10-11] MEDS ORDERED: ZOFRAN IV ONE ×2 (04:16→08:19)
[2018-10-11 04:46] LABS: BASO# 0.06 X1000 (0.0-0.2); BASO% 0.7 % (0.0-0.8); EOS# 0.72 X1000 (0.0-0.7); HEMATOCRIT 49.7 % (42.0-52.0); HEMOGLOBIN 16.7 g/dL (14.0-18.0); IMM GRAN# 0.02 X1000 (0.0-0.04); IMM GRAN% 0.2 % (0.0-0.5); LYMPH# 2.75 X1000 (1.2-3.4); LYMPH% 30.5 % (20.5-51.1); MCH 32.7 PG (27-31); MCHC 33.6 g/dL (33-37); MCV 97.3 FL (81-99); MONO# 0.69 X1000 (0.11-0.59); MONO% 7.6 % (1.7-9.3); MPV 11.5 FL (7.4-10.4); NEUT# 4.79 X1000 (1.4-6.5); PLT 240 X1000 (130-400); RBC 5.11 XMIL (4.7-6.1); RDW 11.7 % (11.5-14.5); WBC 9.03 X1000 (4.8-10.8)
[2018-10-11 05:13] LABS: INR 0.85
[2018-10-11 05:14] LABS: PTT 28.3 Seconds (22.3-41.8)
[2018-10-11 05:23] LABS: ALBUMIN 4.8 g/dL (3.5-5.0); CALCIUM 9.1 mg/dL (8.8-10.2); CREATININE 1.4 mg/dL (0.7-1.2); POTASSIUM 4.2 mmol/L (3.5-5.1); TOTAL BILIRUBIN 0.5 mg/dL (0.20-1.00); TOTAL PROTEIN 8.2 g/dL (6.3-8.3)
[2018-10-11] MEDS ORDERED: NS 700 ML IV ONE (05:58)
[2018-10-11] MEDS ORDERED: ZOSYN 3.375 GM in NS 50 ML IV ONE (06:00)
[2018-10-11 06:24] LABS: BILIRUBIN URINE NEGATIVE (NEGATIVE); BLOOD URINE NEGATIVE (NEGATIVE); CLARITY CLEAR (CLEAR); COLOR YELLOW; KETONE URINE TRACE mg/dL (NEGATIVE); LEUKOCYTES URINE TRACE (NEGATIVE); NITRITE URINE NEGATIVE (NEGATIVE); PROTEIN URINE TRACE mg/dL (NEGATIVE); SP GRAVITY URINE 1.015; UROBILINOGEN URINE NORMAL
[2018-10-11 06:27] LABS: URINE BACTERIA 1+ /HFP; URINE CAST NONE SEEN /LPF; URINE CRYSTAL NONE SEEN /HPF; URINE EPITHELIAL CELLS <10 /HPF (<10); URINE RBC <10 /HPF (<10); URINE SOURCE CLEAN CATCH; URINE WBC <10 /HPF (<10); URINE YEAST NONE SEEN /HPF
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
[2018-10-11] MEDS ORDERED: APRESOLINE IV ONE (08:11)
--- NOTE | 2018-10-11 08:38 | Diag Imaging Result Doc PS360 ---
EXAM: CHEST-1 VIEW - 10/11/2018 HISTORY: sepsis protocol TECHNIQUE: One view chest COMPARISON: 10/01/2018 FINDINGS: Heart size is normal. Inspiration is mildly shallow. There are stable calcified right tracheobronchial lymph nodes from old granulomatous disease. Lungs otherwise appear essentially clear. There is no pleural effusion or pneumothorax identified. There are tiny metallic fragments over the right lung which are stable. IMPRESSION: Mildly shallow inspiration. No other evidence of acute disease. Electronically signed by Keny Vigil 10/11/2018 8:36 AM
[2018-10-11] MEDS: APRESOLINE IV SCH ×4 (09:47→20:35)
[2018-10-11] MEDS: NS 1,000 ML IV SCH ×2 (10:38→16:40)
[2018-10-11] MEDS: ZOSYN 3.375 GM in NS 50 ML IV SCH ×2 (13:13→17:55)
[2018-10-11] MEDS: ZOFRAN IV PRN ×2 (13:24→20:42)
[2018-10-11] MEDS: MORPHINE IV PRN ×2 (13:29→20:42)
--- NOTE | 2018-10-11 19:26 | HISTORY AND PHYSICAL ---
PRIMARY CARE PROVIDER: Esteban Hanley MD. CHIEF COMPLAINT: Abdominal pain. HISTORY OF PRESENT ILLNESS: Mr. Mckay is a 48-year-old, -[place] male, who carries a past medical history of alcohol abuse, hypertension, type 2 diabetes, chronic pancreatitis, who had reported to the ED on 10/10/2018, complaining of back pain and that he was out of his Flexeril and [place] 10 for several days, and had been having intermittent nausea and vomiting since his last discharge on September 30, for an admission for acute on chronic pancreatitis. He reported back to the ED on 10/11/2018, for a recheck. His lipase had gone up to over 600, it was only 200 yesterday, and he was insistent that his last drink was 1 beer on Monday. He was unsure if he had any fever, but he has been profusely sweating. He also had an elevated lactate level, was given IV fluids, and placed on IV Zosyn. We have admitted him to the [place] telemetry floor, and will continue with aggressive IV hydration, empirically with IV Zosyn, pain and antinausea medication, and keep him NPO for now. We will start IV Protonix. Patient ruled in for sepsis. He has a mild urinary tract infection, if one at all, just 1+ bacteria. His chest x-ray did not show any acute disease. May need to do a CT of his abdomen and pelvis. He also does not have a white count. With recheck on his lactate, it went down to 1.4, now back up to 2.7. Continues to be afebrile. PAST MEDICAL HISTORY: 1. Chronic pancreatitis. 2. Alcohol dependence. 3. Tobacco dependence. 4. Diabetes mellitus, insulin dependent. 5. Hypertension. 6. Chronic low back pain. 7. BPH. PAST SURGICAL HISTORY: Toe nail removal. FAMILY HISTORY: Noncontributory. SOCIAL HISTORY: He smokes cigarettes daily. He states his last alcohol was 1 beer on Monday. Denied any illicit drugs. We are checking a toxicology screen. His last toxicology screen was positive for cocaine and cannabinoids. ALLERGIES: No known drug allergies. HOME MEDICATIONS: 1. Clonidine. 2. Flexeril. 3. [place]. 4. Xanax. 5. Basaglar. 6. Flomax. 7. Glucophage. 8. Norvasc. 9. Prilosec. 10. Prinivil. REVIEW OF SYSTEMS: A 12-point review of systems completed and negative, except for those mentioned in the HPI. PHYSICAL EXAMINATION: VITAL SIGNS: Temperature is 97.5 degrees, heart rate 87, respirations 18, blood pressure 177/97, O2 is 97% on room air. GENERAL: Mr. Mckay is a 48-year-old, -[place] male, who is lying on his right side, noticeably sweating, in no acute distress. He is uninterested in being interviewed and will ignore some of my questions. HEENT: Atraumatic, normocephalic. PERRL. NECK: Supple. Trachea midline. CARDIOVASCULAR: S1, S2 appreciated. No murmurs, gallops, rubs noted. RESPIRATORY: Lung sounds clear. GASTROINTESTINAL: Appears to be soft, nontender, nondistended. Positive bowel sounds in 4 quadrants. LOWER EXTREMITIES: Negative for edema. Bilateral pedal pulses are bounding. NEUROLOGIC: The patient is hesitant to answer any questions. However, he does wake up. He will answer some questions, but not all. DIAGNOSTIC DATA: Chest x-ray, no acute disease. LABORATORY DATA: White count 9, hemoglobin and hematocrit 16 and 49, platelet count is 240,000. Sodium 143, potassium 4.2, BUN 17, creatinine 1.4, blood glucose is 160, lipase is 618. Plasma lactate initially 3.1, then 1.4, and back up to 2.7. Urinalysis shows 1+ bacteria. ASSESSMENT AND PLAN: 1. Acute on chronic pancreatitis. We will continue with n.p.o. status, IV fluids, IV Protonix, antiemetics, and pain medication. 2. Probable sepsis. Unsure of the source. We may need a CT of his abdomen to rule out any abscess. However, he does not have a white count nor is he tachycardic or hypotensive. He has just had positive lactates. We will empirically continue with IV Zosyn. 3. Acute kidney injury. We will continue with IV hydration. 4. Alcohol dependence. The patient will need to be counseled when he is more susceptible. 5. Tobacco dependence. Again, will need counseling when he is more susceptible. 6. Diabetes mellitus, insulin dependent. We will place him on patterned blood sugars with sliding scale. 7. Hypertension. We will continue with IV hydralazine. 8. Probable urinary tract infection. He only has 1+ bacteria. Again, we are covering him with IV Zosyn. 9. Further recommendation to follow physician evaluation, laboratory data. Dictated by MANDY Bill for Ger Foreman MD cc: Ger Foreman MD
[2018-10-12] MEDS: MORPHINE IV PRN ×7 (00:42→21:14)
[2018-10-12] MEDS: ZOSYN 3.375 GM in NS 50 ML IV SCH ×4 (00:42→18:03)
[2018-10-12] MEDS: ZOFRAN IV PRN ×6 (00:42→21:14)
[2018-10-12 01:18] LABS: UR AMPHETAMINES QUAL NONE DETECTED (NONE DETECT); UR BARBITUATES QUAL NONE DETECTED (NONE DETECT); UR BENZODIAZEPIN QUAL NONE DETECTED (NONE DETECT); UR CANNABINOIDS QUAL PRESUMPTIVE POSITIVE (NONE DETECT); UR COCAINE QUAL PRESUMPTIVE POSITIVE (NONE DETECT); UR METHADONE QUAL NONE DETECTED (NONE DETECT); UR METHAMPHETAMINE QUAL NONE DETECTED (NONE DETECT); UR OPIATES QUAL NONE DETECTED (NONE DETECT); UR OXYCODONE QUAL NONE DETECTED (NONE DETECT); UR PCP QUAL NONE DETECTED (NONE DETECT); UR PROPOXYPHENE QUAL NONE DETECTED (NONE DETECT); UR TCA QUAL NONE DETECTED (NONE DETECT)
[2018-10-12] MEDS: APRESOLINE IV SCH ×4 (01:31→20:08)
[2018-10-12] MEDS: NS 1,000 ML IV SCH ×3 (03:23→21:14)
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
[2018-10-12 06:41] LABS: BASO# 0.01 X1000 (0.0-0.2); BASO% 0.1 % (0.0-0.8); EOS# 0.04 X1000 (0.0-0.7); EOS% 0.3 % (0.0-10.0); HEMATOCRIT 48.8 % (42.0-52.0); HEMOGLOBIN 16.7 g/dL (14.0-18.0); IMM GRAN# 0.02 X1000 (0.0-0.04); IMM GRAN% 0.2 % (0.0-0.5); LYMPH# 1.39 X1000 (1.2-3.4); LYMPH% 10.7 % (20.5-51.1); MCHC 34.2 g/dL (33-37); MCV 93.5 FL (81-99); MONO# 1.12 X1000 (0.11-0.59); MONO% 8.6 % (1.7-9.3); NEUT# 10.41 X1000 (1.4-6.5); NEUT% 80.1 % (42.2-75.2); PLT 277 X1000 (130-400); RBC 5.22 XMIL (4.7-6.1); RDW 11.2 % (11.5-14.5); WBC 12.99 X1000 (4.8-10.8)
[2018-10-12 07:00] LABS: AGAP 13; ALBUMIN 4.3 g/dL (3.5-5.0); ALKALINE PHOSPHATASE 90 U/L (32-122); BUN 9 mg/dL (8-22); CALCIUM 8.8 mg/dL (8.8-10.2); CHLORIDE 99 mmol/L (98-107); COSMO 280; CREATININE 0.9 mg/dL (0.7-1.2); ESTIMATED GFR > 60; GLUCOSE 175 mg/dL (70-104); GOT 13 U/L (10-34); GPT 18 U/L (10-44); MAGNESIUM 1.7 mg/dL (1.5-2.7); POTASSIUM 3.1 mmol/L (3.5-5.1); SODIUM 139 mmol/L (136-145); TCO2 26 mmol/L (25-35); TOTAL PROTEIN 7.4 g/dL (6.3-8.3)
[2018-10-12] MEDS: NICODERM PATCH TD SCH (10:05)
[2018-10-12] MEDS ORDERED: POTASSIUM CHLORIDE 20 MEQ/SWI 20 MEQ/100 ML IVPB IV ONE (14:00)
--- NOTE | 2018-10-12 19:52 | PROGRESS NOTE ---
DATE: 10/12/2018 SUBJECTIVE: The patient notes he is still having intense abdominal pain with eating or drinking anything. PHYSICAL EXAMINATION: Vital Signs: Temperature 99, pulse 102, respiratory rate 18, blood pressure 150/99. General: Patient is awake, alert, sitting in a chair beside the bed. HEENT: Normocephalic. Neck: Supple. Cardiovascular: Regular rate. Chest: Clear. Nonlabored. Abdomen: Soft, diffusely tender but more so in the epigastric region. Decreased bowel sounds. Extremities: Moves all extremities. Neurologic: No changes. ASSESSMENT: 1. Hypertensive urgency. Blood pressures have improved. 2. Recreational cocaine use, which is likely the cause of his elevated blood pressures. 3. Acute pancreatitis. 4. Hypokalemia. 5. Acute renal failure resolved. 6. Chronic alcohol abuse. 7. Chronic tobacco abuse. 8. Hypertension. PLAN: We will continue patient in the hospital. Again, discussed with him that he needs to remain NPO strictly until his symptoms resolved. We will continue IV fluids, pain control, and will follow. Also discussed with patient the importance of avoiding recreational drug use. cc: Ger Foreman MD
[2018-10-13] MEDS: ZOSYN 3.375 GM in NS 50 ML IV SCH ×5 (00:12→23:22)
[2018-10-13] MEDS: ZOFRAN IV PRN ×5 (01:52→23:48)
[2018-10-13] MEDS: MORPHINE IV PRN ×6 (01:52→23:49)
[2018-10-13] MEDS: APRESOLINE IV SCH ×4 (03:31→20:35)
[2018-10-13] MEDS: NS 1,000 ML IV SCH ×4 (05:58→23:22)
[2018-10-13] MEDS: LACTULOSE PO PRN (06:40)
[2018-10-13 07:36] LABS: AGAP 11; ALBUMIN 3.7 g/dL (3.5-5.0); ALKALINE PHOSPHATASE 78 U/L (32-122); BUN 10 mg/dL (8-22); CALCIUM 8.1 mg/dL (8.8-10.2); CHLORIDE 102 mmol/L (98-107); COSMO 276; CREATININE 0.9 mg/dL (0.7-1.2); ESTIMATED GFR > 60; GLUCOSE 155 mg/dL (70-104); GOT 13 U/L (10-34); GPT 16 U/L (10-44); LIPASE 64 U/L (13-60); POTASSIUM 3.4 mmol/L (3.5-5.1); SODIUM 137 mmol/L (136-145); TCO2 24 mmol/L (25-35); TOTAL PROTEIN 6.3 g/dL (6.3-8.3)
[2018-10-13] MEDS: NICODERM PATCH TD SCH (08:23)
[2018-10-13] MEDS: POTASSIUM CHLORIDE 20 MEQ/SWI 20 MEQ/100 ML IVPB IV SCH ×2 (08:52→13:31)
[2018-10-13] MEDS: ATIVAN IV PRN ×2 (11:20→17:27)
--- NOTE | 2018-10-13 13:19 | PROGRESS NOTE ---
DATE: 10/13/2018 SUBJECTIVE: The patient continues to have some epigastric discomfort this morning. He denies having any other complaints. OBJECTIVE: Vital Signs: Temperature 98.8 degrees, pulse 86 per minute, respiratory rate 18 per minute, blood pressure 150/86, pulse oximetry 99% on room air. General: Patient is alert and oriented x3. He does not appear to be in any acute distress. Cardiovascular: First and second heart sounds are audible without any murmurs or gallops. Respiratory: No respiratory distress noted. Bilateral lung air entry is good without any rales or rhonchi. Gastrointestinal: Abdomen is soft and moderately tender in the epigastric area on deep palpation. No rebound tenderness is present. Normal bowel sounds are present. The patient is morbidly obese. DIAGNOSTIC DATA: Comprehensive metabolic panel showed sodium level of 137, potassium 3.4, glucose 155, and total bilirubin 1.6. Lipase levels were 64. That is improved as compared to 770 yesterday. IMPRESSION: 1. Acute pancreatitis. 2. Hypertension. 3. Type 2 diabetes mellitus. 4. Hypokalemia. PLAN: We will keep him on a clear liquid diet along with IV fluids and I am going to give him potassium chloride IV to address his hypokalemia. He has been having uncontrolled hypertension because of which I am going to start him on Norvasc 5 mg orally once daily. We will keep monitoring his glucose levels and I am going to place him on insulin subcutaneously to cover his glucose levels in case his glucose levels are elevated. Currently, his glucose levels are within relatively desired range. cc: Vj Hernandez MD
[2018-10-14] MEDS: ATIVAN IV PRN ×4 (02:11→23:26)
[2018-10-14] MEDS: APRESOLINE IV SCH ×4 (02:11→21:40)
[2018-10-14] MEDS: LACTULOSE PO PRN (02:12)
[2018-10-14] MEDS: ZOSYN 3.375 GM in NS 50 ML IV SCH ×3 (05:31→18:14)
[2018-10-14] MEDS: MORPHINE IV PRN ×5 (06:44→21:39)
[2018-10-14] MEDS: ZOFRAN IV PRN ×3 (07:01→18:13)
[2018-10-14 07:15] LABS: BASO# 0.01 X1000 (0.0-0.2); BASO% 0.1 % (0.0-0.8); EOS# 0.18 X1000 (0.0-0.7); EOS% 2.2 % (0.0-10.0); HEMOGLOBIN 15.7 g/dL (14.0-18.0); IMM GRAN# 0.01 X1000 (0.0-0.04); IMM GRAN% 0.1 % (0.0-0.5); LYMPH# 1.53 X1000 (1.2-3.4); LYMPH% 18.4 % (20.5-51.1); MCH 32.6 PG (27-31); MCHC 34.9 g/dL (33-37); MCV 93.6 FL (81-99); MONO# 0.93 X1000 (0.11-0.59); MONO% 11.2 % (1.7-9.3); MPV 11.4 FL (7.4-10.4); NEUT# 5.67 X1000 (1.4-6.5); PLT 236 X1000 (130-400); RBC 4.81 XMIL (4.7-6.1); RDW 11.2 % (11.5-14.5); WBC 8.33 X1000 (4.8-10.8)
[2018-10-14 07:34] LABS: AGAP 12; ALBUMIN 3.6 g/dL (3.5-5.0); ALKALINE PHOSPHATASE 67 U/L (32-122); AMYLASE 82 U/L (20-200); BUN 9 mg/dL (8-22); CALCIUM 8.2 mg/dL (8.8-10.2); CHLORIDE 99 mmol/L (98-107); COSMO 269; CREATININE 0.9 mg/dL (0.7-1.2); ESTIMATED GFR > 60; GLUCOSE 176 mg/dL (70-104); GOT 10 U/L (10-34); GPT 13 U/L (10-44); LIPASE 38 U/L (13-60); POTASSIUM 3.5 mmol/L (3.5-5.1); SODIUM 133 mmol/L (136-145); TCO2 22 mmol/L (25-35); TOTAL PROTEIN 6.3 g/dL (6.3-8.3)
[2018-10-14] MEDS: NICODERM PATCH TD SCH (08:17)
--- NOTE | 2018-10-14 11:35 | PROGRESS NOTE ---
DATE: 10/14/2018 SUBJECTIVE: The patient complains of having significant epigastric pain and states that the pain is not getting any better. OBJECTIVE: Vital signs: Temperature is 98.7 degrees, pulse 112 per minute, respiratory rate 18 per minute, blood pressure 157/110. Pulse oximetry is 98% on room air. General: The patient is alert and oriented x3. He appears to be in mild distress secondary to abdominal pain. Cardiovascular: First and second heart sounds are audible without any murmurs or gallops. Respiratory: Bilateral lung air entry is good without any rales or rhonchi. Gastrointestinal: Abdomen is soft and significantly tender on deep palpation in epigastric area. Normal bowel sounds are present. DIAGNOSTIC DATA: CBC and comprehensive metabolic panel are nondiagnostic except for glucose level of 176 and total bilirubin of 1.5. Amylase and lipase have both normalized. IMPRESSION: 1. Acute pancreatitis with resolution of amylase and lipase but continued abdominal pain. 2. Hypertension with elevated blood pressure that is most likely secondary to pain. 3. Type 2 diabetes mellitus. PLAN: He has been on clear liquids but has not been able to tolerate those, and therefore, I am going to change him to n.p.o. I am going to increase his morphine to 4 mg q.4 hours as needed for pain relief and keep him on insulin subcutaneously as per sliding scale to control his glucose levels. I am going to obtain CT scan of the abdomen and pelvis with IV contrast since he is still having significant abdominal pain to make sure he does not have any abscess or any other issue. Further recommendations will be given as per hospital course. cc: Vj Hernandez MD
--- NOTE | 2018-10-14 13:01 | Diag Imaging Result Doc PS360 ---
CT ABD/PELVIS W/IV CONT ONLY - 10/14/2018 INDICATION: Abdominal Pain; Acute Pancreatitis COMPARISON: 09/30/2018 FINDINGS: The lung bases are clear and the heart size is normal. The liver, gallbladder, spleen, pancreas, adrenals, and kidneys are normal. No bowel obstruction or inflammation. Normal appendix. Urinary bladder, prostate, and rectum are normal. There are moderate degenerative changes of the spine. No acute or suspicious bony lesion. IMPRESSION: Negative exam. This exam was performed using automated exposure control, adjustment of mA or kV according to patient size, and/or use of iterative reconstruction technique Electronically signed by Taqueria Perez 10/14/2018 12:59 PM
[2018-10-14] MEDS: NS 1,000 ML IV SCH ×2 (14:34→19:52)
[2018-10-14] MEDS: NORVASC PO SCH (17:20)
[2018-10-15] MEDS: ZOSYN 3.375 GM in NS 50 ML IV SCH ×4 (00:33→11:17)
[2018-10-15] MEDS: APRESOLINE IV SCH ×2 (04:53→09:18)
[2018-10-15] MEDS: NS 1,000 ML IV SCH ×2 (04:54→11:25)
[2018-10-15] MEDS: MORPHINE IV PRN ×4 (05:23→20:21)
[2018-10-15] MEDS: ZOFRAN IV PRN ×2 (05:23→09:17)
[2018-10-15 06:41] LABS: BASO# 0.03 X1000 (0.0-0.2); BASO% 0.5 % (0.0-0.8); EOS# 0.59 X1000 (0.0-0.7); EOS% 8.9 % (0.0-10.0); HEMATOCRIT 40.5 % (42.0-52.0); IMM GRAN# 0.01 X1000 (0.0-0.04); IMM GRAN% 0.2 % (0.0-0.5); LYMPH# 1.65 X1000 (1.2-3.4); MCH 32.5 PG (27-31); MCHC 34.6 g/dL (33-37); MONO# 0.82 X1000 (0.11-0.59); MONO% 12.4 % (1.7-9.3); MPV 11.6 FL (7.4-10.4); NEUT# 3.51 X1000 (1.4-6.5); PLT 234 X1000 (130-400); RBC 4.31 XMIL (4.7-6.1); RDW 11.2 % (11.5-14.5); WBC 6.61 X1000 (4.8-10.8)
[2018-10-15 07:02] LABS: AGAP 9; ALBUMIN 3.2 g/dL (3.5-5.0); ALKALINE PHOSPHATASE 58 U/L (32-122); BUN 9 mg/dL (8-22); CALCIUM 7.7 mg/dL (8.8-10.2); CHLORIDE 106 mmol/L (98-107); COSMO 277; CREATININE 0.8 mg/dL (0.7-1.2); ESTIMATED GFR > 60; GLUCOSE 118 mg/dL (70-104); GOT 12 U/L (10-34); GPT 12 U/L (10-44); POTASSIUM 3.3 mmol/L (3.5-5.1); SODIUM 139 mmol/L (136-145); TCO2 24 mmol/L (25-35); TOTAL PROTEIN 5.7 g/dL (6.3-8.3)
[2018-10-15] MEDS: ATIVAN IV PRN (07:57)
[2018-10-15] MEDS: LACTULOSE PO PRN (09:16)
[2018-10-15] MEDS: NICODERM PATCH TD SCH (09:19)
[2018-10-15] MEDS: NORVASC PO SCH ×2 (09:19→20:19)
--- NOTE | 2018-10-15 18:04 | PROGRESS NOTE ---
DATE: 10/15/2018 SUBJECTIVE: Today, Mr. Mckay refers to be doing slightly okay. Still has a lot of abdominal pain. He said his medications have all been discontinued and that creates a lot of anxiety in him. OBJECTIVE: Vital signs: Blood pressure is 156/98, pulse of 92, respirations 15, temperature 98.4 degrees. General: Mr. Mckay is a 48-year-old gentleman. He is in bed. No distress. HEENT: Mucosa is pink and moist. Anicteric. Acyanotic. Neck: Supple. Chest: Clear to auscultation. Cardiovascular: Regular rate and rhythm. No murmurs. Abdomen: Soft, minimally tender in the epigastrium. Bowel sounds present. Central Nervous System: The patient is awake, alert, and oriented. LABORATORY DATA: CBC is reviewed, it is completely within normal range. Chemistry is also reviewed, potassium is 3.3. Rest of chemistry is unremarkable. The patient's urine drug screen was positive for cocaine and cannabinoids. A CT scan of the abdomen and pelvis was completely negative on admission. ASSESSMENT: 1. Recurrent acute pancreatitis, presumably from alcohol. The patient's lipase has normalized. 2. Hypertension. We will start the patient on his blood pressure medications. 3. History of diabetes mellitus. 4. Recreational drug abuse. Urine toxicology was positive for cocaine and cannabinoids. 5. Hypokalemia. We will replace this. 6. Previous history of gastritis. Patient is on proton pump inhibitors. In general, Mr. Mckay's laboratory data has shown lipase has normalized. A CT scan was completely unremarkable. However, he still complains of a lot of abdominal pain. Physical exams were not as impressive. We are pending GI evaluation and then go from there. We will start the patient back on his home medications. cc: Enrico Britton MD
[2018-10-15] MEDS: NORCO-10 PO SCH (18:08)
[2018-10-15] MEDS: XANAX PO SCH (20:19)
[2018-10-15] MEDS: FLEXERIL PO SCH (20:19)
[2018-10-15] MEDS: CATAPRES PO SCH (20:19)
[2018-10-15] MEDS: PRILOSEC PO SCH (20:19)
[2018-10-16] MEDS: NORCO-10 PO SCH ×4 (01:02→20:11)
[2018-10-16] MEDS: MORPHINE IV PRN ×4 (03:45→23:03)
[2018-10-16] MEDS: PRILOSEC PO SCH ×2 (06:16→20:12)
--- NOTE | 2018-10-16 08:06 | PROGRESS NOTE ---
DATE: 10/15/2018 SUBJECTIVE: Patient still has significant abdominal pain although diffusely, not quite just epigastric at this point. PHYSICAL EXAMINATION: Vital Signs: Reviewed. Temperature 97.8 degrees pulse 96, respiratory rate 18, BP 169/94. General: Patient is awake. He is lying in bed. He is in no respiratory distress. He is asking if he can eat or if he can have coffee, but also notes he still has significant abdominal pain. HEENT: Normocephalic. Neck: Supple. Cardiovascular: Regular rate. Chest: Clear. Abdomen: Soft. Positive bowel sounds. Diffusely tender. Extremities: Moves all extremities. ASSESSMENT: 1. Abdominal pain. His amylase and lipase both resolved but he is still having significant abdominal pain. 2. Hypertension. 3. Diabetes. PLAN: At this point, we are going to transfer him to [facility], ask GI to evaluate his abdominal pain. We will keep him n.p.o. until the evaluation. cc: Ger Foreman MD
[2018-10-16] MEDS: NORVASC PO SCH ×2 (09:25→20:11)
[2018-10-16] MEDS: CATAPRES PO SCH ×2 (09:25→20:12)
[2018-10-16] MEDS: FLOMAX PO SCH (09:25)
[2018-10-16] MEDS: FLEXERIL PO SCH ×2 (09:25→20:11)
[2018-10-16] MEDS: XANAX PO SCH ×2 (09:25→20:11)
[2018-10-16] MEDS: PRINIVIL PO SCH (09:25)
[2018-10-16] MEDS: NICODERM PATCH TD SCH (11:51)
[2018-10-16] MEDS: MIRALAX PO SCH (11:52)
[2018-10-16] MEDS ORDERED: MILK OF MAGNESIA PO ONE (13:40)
--- NOTE | 2018-10-16 13:56 | GASTROENTEROLOGY CONSULTATION ---
DATE: 10/16/2018 REASON FOR CONSULTATION: Abdominal pain, recurrent pancreatitis. HISTORY OF PRESENT ILLNESS: This is a 48-year-old male, who was recently in the hospital the end of September for the same symptoms. He had presented back to [facility] on 10/11/2018 with nausea, vomiting and abdominal pain. His amylase and lipase were elevated. Currently, his abdominal pain has improved some. He still reports some tenderness. He states this episode was actually worse than his previous episode in September. Patient reports drinking 3 beers since his last hospitalization. He does report occasional marijuana use. He states he has not used cocaine, although his toxicology screen was positive for marijuana and cocaine. PAST MEDICAL HISTORY: 1. History of pancreatitis. 2. History of alcohol use. 3. History of tobacco use. 4. History of marijuana and cocaine use. 5. Diabetes. 6. Hypertension. 7. BPH. 8. Chronic back pain. PAST SURGICAL HISTORY: Toenail removal. ALLERGIES: No known drug allergies. HOME MEDICATIONS: 1. Xanax 1 mg twice a day. 2. Norvasc 2.5 mg twice a day. 3. Clonidine 1 tablet twice a day. 4. Flexeril 10 mg twice a day. 5. [place] 10/325 three times a day. 6. Insulin 15 units subcutaneous every night. 7. Prinivil 10 mg daily. 8. Glucophage 500 mg twice a day. 9. Prilosec 20 mg twice a day. 10. Flomax 0.4 mg daily. SOCIAL HISTORY: Positive for tobacco use. Patient states he has cut down his alcohol use. He states he has had 3 beers since this last hospitalization. He denies cocaine use, but his toxicology report was positive. He has had occasional marijuana use since his previous discharge. REVIEW OF SYSTEMS: Per history of present illness. PHYSICAL EXAMINATION: Vital Signs: Temperature 98.1 degrees, pulse 83, respirations 19, blood pressure 153/99. General: Patient is awake and alert, in no acute distress. HEENT: Normocephalic, atraumatic. Pupils equal, round, reactive to light. Sclerae nonicteric. Respiratory: Lung sounds essentially clear. Cardiovascular: Regular rate and rhythm. Abdomen: Positive bowel sounds. Some mild tenderness with palpation. Extremities: No lower extremity edema noted. Neurologic: Cranial nerves 2-12 grossly intact. Patient is awake, alert, oriented to person, place, and time. DIAGNOSTIC RESULTS: Laboratory: Hematology: WBC 6.61, hemoglobin 14.0 hematocrit 40.5, MCV 94.0 platelet 234. Chemistry: Sodium 139, potassium 3.3, chloride 106, CO2 24. BUN 9, creatinine 0.8, glucose 118, calcium 7.7. Total bilirubin 1.20, AST 12, ALT 12, alkaline phosphatase 50. Amylase and lipase on 10/14/2018 of 82 and 38. ASSESSMENT AND PLAN: 1. Recurrent pancreatitis. His amylase and lipase have returned to normal. 2. Abdominal pain. 3. History of diabetes, hypertension. 4. History of tobacco use, alcohol use, illicit drug use. I have counseled him on avoiding all those things. For further evaluation because of his recurrent pancreatitis, I would recommend an MRI of the abdomen to check for pancreatic divisum. Further plans to be made according to findings. Will advance his diet. Patient so far is tolerating an advancement of his diet. Will continue to follow and further plans to be made as needed. I have discussed this case with Dr. Méndez. Thank you for this consultation. Dictated by MANDY Rojas for Thiago Méndez MD cc: MANDY Herbert MD
--- NOTE | 2018-10-16 14:54 | Diag Imaging Result Doc PS360 ---
EXAM: MRI ABDOMEN W/O CONTRAST 10/16/2018 HISTORY: check for pancreatic divisum TECHNIQUE: Axial T2, water 3-D, in and out of phase T1 ADC and coronal T2, water 3-D in an out of phase T1 and MRCP 3-D MIPS. COMMENT: The common bile duct is normal in appearance. The right renal pelvis is somewhat prominent but the ureters are normal in appearance. There are no apparent gallstones. There are apparently two separate pancreatic ducts the larger of the two which drains the majority of the pancreas including the body and tail, lying posteriorly to the common duct and the other converging with the common duct at the ampulla, and apparently draining the ventral portion of the head. There are no apparent masses. No abnormal fluid collections are present. IMPRESSION: Pancreas divisum. Electronically signed by Douglas Nash 10/16/2018 2:52 PM
--- NOTE | 2018-10-16 15:27 | PROGRESS NOTE ---
DATE: 10/16/2018 SUBJECTIVE: This morning Mr. Mckay refers to be doing a little better, not as painful as yesterday. OBJECTIVE: Vital signs: Blood pressure is 153/99, pulse of 83, respiration is 19, temperature 98.1 degrees. General: Mr. Mckay is a 48-year-old gentleman. He was in bed in no distress. HEENT: Mucosa is pink and moist. Anicteric. Acyanotic. Neck: Supple. Chest: Good air entry bilaterally. There were no crepitations, no rhonchi. Cardiovascular: Regular rate and rhythm. Abdomen: Soft, nontender. Bowel sounds present. Extremities: No pedal edema. 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 There is no focal neurological deficit. LABORATORY DATA: None for this morning. C-reactive protein is 12.12, which is slightly elevated. ASSESSMENT: 1. Recurrent acute pancreatitis. Enzymes have normalized. Presumably this is from alcohol induced. The patient's MRI shows pancreas divisum, but no obstruction noted. 2. Hypertension, controlled. 3. History of diabetes mellitus. 4. Recreational drug use with urine toxicology positive for cocaine and cannabis. 5. History of gastritis. Patient is on proton pump inhibitors. PLAN: So, in general I think Mr. Mckay is doing better. He has been advanced to GI soft diet. He seems to be tolerating that. We will wait for GI final recommendations and hopefully get him discharged tomorrow. cc: Enrico Britton MD
[2018-10-17] MEDS: MORPHINE IV PRN ×3 (04:11→12:26)
[2018-10-17] MEDS: PRILOSEC PO SCH (06:20)
[2018-10-17 07:32] VITALS: BP 142/91
[2018-10-17] MEDS: MIRALAX PO SCH (08:47)
[2018-10-17] MEDS: FLEXERIL PO SCH (08:47)
[2018-10-17] MEDS: CATAPRES PO SCH (08:47)
[2018-10-17] MEDS: FLOMAX PO SCH (08:47)
[2018-10-17] MEDS: NORVASC PO SCH (08:47)
[2018-10-17] MEDS: NICODERM PATCH TD SCH (08:47)
[2018-10-17] MEDS: PRINIVIL PO SCH (08:47)
[2018-10-17] MEDS: XANAX PO SCH (08:49)
[2018-10-17] MEDS: NORCO-10 PO SCH ×2 (08:49→15:05)
[2018-10-17] MEDS ORDERED: MILK OF MAGNESIA PO ONE (12:18)
--- NOTE | 2018-10-17 20:15 | GASTROENTEROLOGY PROGRESS NOTE ---
DATE: 10/17/2018 SUBJECTIVE: Patient still reports some abdominal pain. We did an MRI of the abdomen yesterday. Findings showed pancreatic divisum. There were 2 separate pancreatic ducts, the larger of the 2 which drained the majority of the pancreas including the body and tail lying posterior to the common bile duct, and the other converging with the common bile duct at the ampulla, apparently draining from the ventral portion of the head. No apparent masses. No abnormal fluid collection was seen. I have discussed the findings with the patient. OBJECTIVE: Vital signs: Temperature 99.2, pulse 84, respirations 18, blood pressure 142/91. General: Patient was awake and alert, sitting up in a chair at that time on my evaluation. Abdomen: Soft but tender. He does complain of constipation. I had given him a dose of Milk of Magnesia yesterday. He also has MiraLAX ordered daily. LABORATORY: Hematology: WBCs 6.61, hemoglobin 14.0, hematocrit 40.5, MCV 94.0 platelet 234. Chemistry: Sodium 139, potassium 3.3, chloride 106, CO2 24, BUN 9, creatinine 0.8, glucose 118, total bilirubin 1.20 AST 12 ALT 12 alkaline phosphatase 58, amylase 82, lipase 38. ASSESSMENT AND PLAN: 1. Recurrent pancreatitis. His amylase and lipase have returned to normal. 2. Abdominal pain. 3. Constipation. The patient will be given an additional Milk of Magnesia dose today. Recommend he continue MiraLAX. If his constipation does not improve, he may need a stronger laxative. I have recommended he follow with us back in the office or call our office if symptoms do not improve. 4. Pancreatic divisum by MRI of the abdomen. Patient will most likely be sent as an outpatient for referral at a tertiary center for pancreatic divisum. He will most likely need sphincterotomy. We will make that appointment for him as an outpatient. Again recommended he follow up with us in the office after discharge. I have discussed this case with Dr. Méndez. Further plans will be made as needed. Dictated by MANDY Rojas for Thiago Méndez MD cc: MANDY Herbert MD [facility]
--- NOTE | 2018-10-18 10:28 | DISCHARGE SUMMARY ---
ADMISSION DATE: 10/11/2018 DISCHARGE DATE: 10/17/2018 DISPOSITION: Home. INVASIVE PROCEDURES DONE DURING THIS ADMISSION: None. IMAGING STUDIES OF SIGNIFICANCE: 1. A chest x-ray showed mildly shallow inspiration. 2. A CT scan of the abdomen and pelvis was negative. 3. An MRI of the abdomen showed a pancreas divisum. ADMISSION DIAGNOSES: 1. Acute on chronic pancreatitis. 2. Probable sepsis. 3. Acute kidney injury. 4. Tobacco dependence. 5. Diabetes mellitus. DIAGNOSIS AT THE TIME OF DISCHARGE: 1. Recurrent acute pancreatitis. 2. Pancreas divisum on MRI. 3. Hypertension. 4. Diabetes mellitus. 5. Recreational drug use with urine toxicology positive for cocaine and cannabis. 6. History of gastritis. 7. Mild thrombophlebitis to the right cubital fossa from IV access. DISCHARGE MEDICATIONS: 1. Xanax 1 mg b.i.d. 2. Flexeril 10 mg b.i.d. 3. Omeprazole 20 mg p.o. daily. 4. Tamsulosin 0.4 p.o. daily. 5. Metformin 500 b.i.d. 6. Amlodipine 2.5 b.i.d. 7. Lisinopril 10 mg p.o. daily. 8. Glargine 15 units subcutaneous at bedtime. 9. Clonidine 1 tablet b.i.d. 10. Celebrex 200 mg daily. 11. Cephalexin 500 mg b.i.d. 12. Carafate 1 g p.o. b.i.d. 13. MiraLAX. PRESENTING COMPLAINT: Abdominal pain. HISTORY OF PRESENT COMPLAINT: Mr. Mckay is a 48-year-old gentleman who is known to have chronic pancreatitis, alcohol dependence, tobacco dependence, diabetes mellitus, came to the emergency department because of abdominal pain. He was initially evaluated in [place] and admitted for about 3 days. However, despite his enzymes trended down and even became normalized, he still complained of pain, so he was subsequently transferred to [facility] for higher level of care. HOSPITAL COURSE: Mr. Mckay did improve during the hospital course. He underwent eventually an MRI of the abdomen which revealed a pancreas divisum. Otherwise, there was not any other findings on the MRI. Mr. Mckay was started on his regular diet which he tolerated very well. He is currently completely asymptomatic. We think he is stable to be discharged. He has been notified about the fact that he has pancreas divisum. He has also been advised to stay away from any medication with potential to slow down the GI tract including opioids, which will have potential to affect the drainage at the sphincter of Oddi. Mr. Mckay has also been advised on alcohol cessation as well as tobacco cessation. All the discharge instructions have been discussed with him and he voiced understanding. He is supposed to be following up with Dr. Méndez who saw him during the hospital course. Time spent for discharge is 36 minutes. cc: MD Esteban Hancock MD Khurshid Yousuf, MD
== END 2018-10-17 17:00 | disposition home or self-care (01) | DRG 439 ==
LOC: P.ED 04:03 → SUATTDRO 08:20 → P.MEDSURG 08:20 → 3N 10-15 13:21
PROVIDERS: ATTEND Internal Medicine

== ENCOUNTER 2019-03-24 21:04 | Inpatient (IN) ==
[2019-03-24] MEDS ORDERED: PROTONIX 80 MG in NS 80 ML IV ONE (21:37)
[2019-03-24] MEDS ORDERED: NS 1,000 ML IV ONE (21:37)
[2019-03-24] MEDS ORDERED: ZOFRAN IV ONE (21:38)
[2019-03-24] MEDS ORDERED: MORPHINE IV ONE (21:58)
[2019-03-24 22:02] LABS: OCCULT BLOOD 1 POSITIVE (NEGATIVE)
[2019-03-24 22:06] LABS: BASO# 0.01 X1000 (0.0-0.2); BASO% 0.1 % (0.0-0.8); EOS# 0.03 X1000 (0.0-0.7); EOS% 0.2 % (0.0-10.0); HEMATOCRIT 47.9 % (42.0-52.0); HEMOGLOBIN 16.5 g/dL (14.0-18.0); IMM GRAN# 0.03 X1000 (0.0-0.04); IMM GRAN% 0.2 % (0.0-0.5); LYMPH% 12.2 % (20.5-51.1); MCH 31.1 PG (27-31); MCHC 34.4 g/dL (33-37); MCV 90.2 FL (81-99); MONO# 1.48 X1000 (0.11-0.59); MPV 11.1 FL (7.4-10.4); NEUT# 9.29 X1000 (1.4-6.5); NEUT% 75.3 % (42.2-75.2); PLT 322 X1000 (130-400); RBC 5.31 XMIL (4.7-6.1); WBC 12.34 X1000 (4.8-10.8)
[2019-03-24 22:18] LABS: INR 0.93; PROTIME 12.9 Seconds (11.0-16.0)
[2019-03-24 22:19] LABS: PTT 30.5 Seconds (22.3-41.8)
[2019-03-24 22:26] LABS: LIPASE 50 U/L (13-60)
[2019-03-24 22:32] LABS: ALBUMIN 4.9 g/dL (3.5-5.0); CALCIUM 9.8 mg/dL (8.8-10.2); CREATININE 1.3 mg/dL (0.7-1.2); POTASSIUM 3.2 mmol/L (3.5-5.1); TOTAL BILIRUBIN 1.8 mg/dL (0.20-1.00); TOTAL PROTEIN 8.7 g/dL (6.3-8.3)
[2019-03-24 23:05] LABS: ACETONE SERUM NEGATIVE (NEGATIVE)
[2019-03-24] MEDS ORDERED: POTASSIUM CHLORIDE 10 MEQ/SWI 10 MEQ/100 ML IVPB IV ONE (23:39)
[2019-03-25] MEDS ORDERED: ZOFRAN IV ONE (00:20)
[2019-03-25 01:01] LABS: URINE SOURCE CLEAN CATCH
[2019-03-25 01:05] LABS: BILIRUBIN URINE NEGATIVE (NEGATIVE); BLOOD URINE NEGATIVE (NEGATIVE); COLOR YELLOW; GLUCOSE URINE NEGATIVE (NEGATIVE); KETONE URINE 40 mg/dL (NEGATIVE); LEUKOCYTES URINE NEGATIVE (NEGATIVE); NITRITE URINE NEGATIVE (NEGATIVE); PH URINE 7.5; PROTEIN URINE 30 mg/dL (NEGATIVE); TURBIDITY URINE CLEAR (CLEAR); UROBILINOGEN URINE NORMAL (NORMAL)
[2019-03-25 01:07] LABS: UR EPITHELIAL CELLS <10 /HPF (<10); URINE BACTERIA NEGATIVE /HPF; URINE RBC <10 /HPF (<10); URINE WBC <10 /HPF (<10)
[2019-03-25] MEDS ORDERED: MORPHINE IV PRN (01:11)
[2019-03-25] MEDS ORDERED: ZOFRAN IV PRN (01:11)
[2019-03-25] MEDS ORDERED: PROTONIX 80 MG in NS 80 ML IV SCH (01:15)
[2019-03-25] MEDS ORDERED: LABETALOL IV ONE (01:19)
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
[2019-03-25] MEDS ORDERED: LABETALOL ONE (01:55)
[2019-03-25] MEDS: MORPHINE IV PRN ×8 (05:46→23:45)
[2019-03-25] MEDS: ZOFRAN IV PRN ×5 (05:47→23:45)
--- NOTE | 2019-03-25 06:27 | Diag Imaging Result Doc PS360 ---
CHEST-PORTABLE - 03/25/2019 INDICATION: vomiting blood COMPARISON: 12/21/2018 FINDINGS: Lung volumes are moderately low. No infiltrates. Heart size is normal. No pneumothorax or pleural effusion. Stable large calcified granulomas in the right paratracheal stripe. IMPRESSION: No acute disease or change from prior. Electronically signed by Taqueria Perez 03/25/2019 6:25 AM
--- NOTE | 2019-03-25 06:31 | EKG Report ---
Test Performed on : 03/25/2019 04:36:29 AM Test Reason : vomiting blood Blood Pressure : / mmHG Vent. Rate : 097 BPM Atrial Rate : 097 BPM P-R Int : 142 ms QRS Dur : 074 ms QT Int : 402 ms P-R-T Axes : 042 052 049 degrees QTc Int : 510 ms Normal sinus rhythm. Prolonged QT Abnormal ECG When compared with ECG of 21-DEC-2018 07:59, QT has lengthened Unconfirmed Result
--- NOTE | 2019-03-25 07:35 | Diag Imaging Result Doc PS360 ---
EXAM: CT ABD/PELVIS W/IV CONT ONLY INDICATION: pancreatitis and gi bleeding TECHNIQUE: This exam was performed using automated exposure control, adjustment of mA or kV according to patient size, and/or use of iterative reconstruction technique. COMPARISON: 10/14/2018 FINDINGS: The gallbladder, liver, spleen, and adrenal glands are essentially unremarkable. The pancreas appears normal. There is no peripancreatic inflammatory change to indicate acute pancreatitis. 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 The kidneys are grossly unremarkable, otherwise. The urinary bladder appears normal. There is a mild to moderate amount of retained fecal material in the colon. There are a very few colonic diverticula with no evidence of diverticulitis. There is no evidence of appendicitis. There is no focal bowel wall thickening or bowel obstruction appreciated. There is questionable mild thickening of the distal esophagus. Consider mild esophagitis. The remainder of the GI tract is grossly unremarkable. No focal inflammatory changes, free abdominal gas, or free fluid is appreciated. IMPRESSION: 1.Suggestion of mild to moderate constipation. 2.Questionable mild thickening of the distal esophageal wall. Consider mild esophagitis. 3.No CT evidence of pancreatitis. Electronically signed by Camilo Landis 03/25/2019 7:32 AM
[2019-03-25 10:04] LABS: HEMATOCRIT 43.7 % (42.0-52.0); HEMOGLOBIN 14.7 g/dL (14.0-18.0); MCH 31.4 PG (27-31); MCHC 33.6 g/dL (33-37); MCV 93.4 FL (81-99); MPV 12.1 FL (7.4-10.4); RBC 4.68 XMIL (4.7-6.1); RDW 12.2 % (11.5-14.5); WBC 10.93 X1000 (4.8-10.8)
[2019-03-25 10:18] LABS: AGAP 15; ALBUMIN 4.3 g/dL (3.5-5.0); ALKALINE PHOSPHATASE 80 U/L (32-122); BUN 24 mg/dL (8-22); CALCIUM 8.9 mg/dL (8.8-10.2); CHLORIDE 94 mmol/L (98-107); COSMO 281; CREATININE 1.2 mg/dL (0.7-1.2); ESTIMATED GFR > 60; GLUCOSE 127 mg/dL (70-104); GOT 18 U/L (10-34); GPT 11 U/L (10-44); POTASSIUM 3.5 mmol/L (3.5-5.1); SODIUM 138 mmol/L (136-145); TCO2 29 mmol/L (25-35); TOTAL PROTEIN 7.6 g/dL (6.3-8.3)
[2019-03-25] MEDS: PROTONIX 80 MG in NS 80 ML IV SCH ×2 (10:38→12:49)
[2019-03-25] MEDS: HUMALOG SUBQ SCH ×3 (10:40→21:45)
[2019-03-25 10:43] LABS: HEMOGLOBIN A1C 6.6 % (4.8-6.0)
[2019-03-25 11:46] LABS: HEMATOCRIT 45.2 % (42.0-52.0); HEMOGLOBIN 15.1 g/dL (14.0-18.0)
--- NOTE | 2019-03-25 13:34 | HISTORY AND PHYSICAL ---
DATE: 03/25/2019 SUBJECTIVE: Mr. Neri Mckay came over, I believe from [place]. He had history of hematemesis. A 48-year-old. He was in the hospital back in September and then in October with abdominal pain, recurrent pancreatitis. He was having some vomiting and had hematemesis this time. PAST MEDICAL HISTORY: 1. Pancreatitis. 2. Alcohol use. 3. Tobacco use. 4. History of marijuana, cocaine use. 5. Diabetes. 6. Hypertension. 7. Benign prostatic hypertrophy. 8. Chronic back pain. PAST SURGICAL HISTORY: Toenail removal and that is about it. MEDICATIONS: His list of home medications, he is on 1. Xanax 1 mg twice a day. 2. Norvasc 2.5 mg twice a day. 3. Clonidine 1 tablet twice a day. 4. Flexeril 10 mg twice a day. 5. [place] 10/325 three times a day. 6. Insulin 15 units subcutaneous every night. 7. Prinivil 10 mg daily. 8. Glucophage 500 mg twice a day. 9. Prilosec 20 mg twice a day. 10. Flomax 0.4 mg daily. OBJECTIVE: General: He was sitting up on side of the bed when I saw him. Vital Signs: He remains afebrile, temperature 98.3 degrees, pulse 96, respirations 16, blood pressure 135/91. HEENT: Pupils are equal and round. Lungs: Clear in all lung gonzalez. Cardiovascular: Regular rhythm and rate without murmur or S3. Abdomen: Epigastric and left-sided discomfort in his abdomen. LABORATORY DATA: White count 10,930, hematocrit is 43, platelet count 275,000. Sodium 138, potassium 3.5, chloride 94, BUN 24, creatinine 0.1, 0.2, blood sugar 127, AST 18, ALT is 11, alkaline phosphatase is 80, albumin is 4.3. ProTime is 12.9, INR 0.93. Urinalysis unremarkable. Abdominal and pelvic CT: Suggestion of [id number] constipation, questionable mild thickening of the distal esophageal wall, consider mild esophagitis. There was no CT evidence of pancreatitis on CT scan. Note that his lipase was 50. ASSESSMENT AND PLAN: Appears he had some hematemesis. Gastroenterology will see. His hematocrit is 47, hemoglobin 16, and this remained stable. No significant drop. He is still having some nausea. Electrolytes look good. Transaminases were not elevated. Dr. Méndez is going to see him today. cc: Lucho Guerra MD
[2019-03-25 14:49] LABS: HEMATOCRIT 47.3 % (42.0-52.0); HEMOGLOBIN 15.7 g/dL (14.0-18.0)
[2019-03-25 18:31] LABS: HEMATOCRIT 45.8 % (42.0-52.0); HEMOGLOBIN 15.3 g/dL (14.0-18.0)
--- NOTE | 2019-03-25 21:13 | GASTROENTEROLOGY CONSULTATION ---
DATE: 03/25/2019 REASON FOR CONSULTATION: Hematemesis. HISTORY OF PRESENT ILLNESS: This is a 49-year-old male who reports onset of symptoms on Monday. He states he woke up and had nausea and abdominal pain. He also reported lower side and back pain. He did go to work for about 4 hours Monday evening. During the day Monday, he had up to 3 to 4 episodes of vomiting along with nausea. When driving to work he had to stick puller on the side of the room multiple times with nausea and vomiting. He had reported dark emesis. No reported bright red blood per emesis. He does report occasional constipation and has been taking laxatives daily. Sometimes he increases it to twice a day if needed. He had a Hemoccult-positive stool noted. We had seen the patient in the hospital in October 2018 with pancreatitis. At that time an MRCP was done that showed pancreatic divisum. Patient had followed in our office in November and we had sent a referral to Dr. Izaguirre at [facility] for evaluation and possible ERCP with minor papillotomy. The patient states he was never seen at [facility]. Per our records, he missed his February appointment with us and there was a note from Dr. Izaguirre at [facility] that they had tried to call the patient multiple times to set up an appointment and never could reach him. The patient states he has not had any further episodes of pancreatitis since that October hospitalization. He is taking Creon. He has denied alcohol use but he continues to smoke marijuana almost every day. PAST MEDICAL HISTORY: History of pancreatitis, history of pancreatic divisum, history of alcohol use, none reported now, tobacco use, history of marijuana use, he does have a history of cocaine use, diabetes, hypertension, benign prostatic hypertrophy, chronic back pain. PAST SURGICAL HISTORY: Toenail removal. ALLERGIES: No known drug allergies. HOME MEDICATIONS: Xanax 1 mg twice a day, Norvasc 2.5 mg twice a day, clonidine 1 tablet twice a day, Flexeril 10 mg twice a day, [place] 10/325 one 3 times a day, insulin 70/30 15 units every night, insulin 70/30 32 units in the morning, Creon 1 as directed with meals, lisinopril/hydrochlorothiazide 20/12.5 daily, metformin 500 mg twice a day, Prilosec 20 mg twice a day, MiraLAX 17 g daily, Compazine 10 mg 3 times a day as needed, Flomax 0.4 mg daily. SOCIAL HISTORY: Positive for tobacco use, positive for marijuana use. Patient states he has stopped alcohol use. He has 3 children. REVIEW OF SYSTEMS: Per history of present illness.Vital Signs: Temperature 98.2 degrees, pulse 100, respirations 18, blood pressure 172/109. Previous blood pressure was 135/91. General: Patient is awake and alert. No acute distress. He does report some nausea. He states he has not had any vomiting this morning as long as he is receiving Zofran, he is reporting some abdominal pain. He has a history of constipation. HEENT: Normocephalic, atraumatic. Pupils equal, round, reactive to light. Sclerae nonicteric. Respiratory: Lung sounds essentially clear. Cardiovascular: Regular rate and rhythm. Abdomen: Mildly tender, otherwise soft with positive bowel sounds. Extremities: With no lower extremity edema noted. Neurologic: Cranial nerves 2- 12 grossly intact. Patient is awake, alert, oriented to person, place, and time. Musculoskeletal: No lower extremity edema noted. LABORATORY: Hematology. WBC 10.93, hemoglobin 15.7, hematocrit 47.3, MCV 93.4, platelet 275,000. Coagulation, pro time 12.9, INR 0.93, PTT 30.5. Chemistry. Sodium 138, potassium 3.5, chloride 94, CO2 29, BUN 24, creatinine 1.2, glucose 127. Hemoglobin A1c 6.6, calcium 8.9, total bilirubin 1.50, AST 18, ALT 11, alkaline phosphatase 80, albumin 4.3, lipase 50. Stool for occult blood was positive. Serum alcohol level was nondetected. ASSESSMENT AND PLAN: 1. Nausea, vomiting. 2. Hematemesis possibly Cathleen sagastume tear due to vomiting. 3. Hemoglobin and hematocrit are normal. 4. History of marijuana use possibly causing his gastrointestinal symptoms. 5. Questionable gastroenteritis. Continue PPI. He has a history of pancreatitis but his pancreatic enzymes are normal. No evidence of pancreatitis per CT scan. Would recommend symptomatic treatment at present time. Depending on his response, he may need an EGD if symptoms do not improve but would recommend he follow up with us as an outpatient. We do need to re- refer him to Dr. Izaguirre at [facility]. We will try to do that as an outpatient. Patient was attempted to be notified by Dr. Izaguirre but reported that they had tried to call him multiple times with no return call. Again, will continue to follow during his hospital course and further plans to be made according to his progress. I have discussed this case with Dr. Méndez. Thank you for this consultation. Dictated by MANDY Rojas for Thiago Méndez MD cc: MANDY Herbert MD
[2019-03-25 21:38] LABS: HEMATOCRIT 48.5 % (42.0-52.0); HEMOGLOBIN 16.5 g/dL (14.0-18.0)
[2019-03-25] MEDS: MIRALAX PO SCH (21:45)
[2019-03-26] MEDS: MORPHINE IV PRN ×8 (01:48→22:10)
[2019-03-26 02:21] LABS: HEMATOCRIT 42.2 % (42.0-52.0); HEMOGLOBIN 14.4 g/dL (14.0-18.0)
[2019-03-26 05:53] LABS: HEMATOCRIT 42.4 % (42.0-52.0); HEMOGLOBIN 14.4 g/dL (14.0-18.0)
[2019-03-26] MEDS: PROTONIX PO SCH (06:24)
[2019-03-26] MEDS: HUMALOG SUBQ SCH ×4 (06:41→21:59)
[2019-03-26] MEDS: MIRALAX PO SCH (09:15)
--- NOTE | 2019-03-26 12:37 | GASTROENTEROLOGY PROGRESS NOTE ---
DATE: 03/26/2019 SUBJECTIVE: The patient is complaining of abdominal pain today. Reports pain in the left quadrant. He states he had an accident in the middle of the night, and had liquid, black, tarry stool noted. Last episode of vomiting was around 7 p.m. last night. He does report continued nausea, and is getting Zofran as needed. Hemoglobin and hematocrit today are 14.4 and 42.4. OBJECTIVE: Vital Signs: Temperature 98 degrees, pulse 91, respirations 16, blood pressure 154/105. General: The patient is awake and alert, complaining of abdominal pain. Respiratory: Lung sounds are essentially clear. Abdomen: Some tenderness in the left quadrant area, otherwise soft with positive bowel sounds. LABORATORY AND DIAGNOSTIC DATA: Hematology: WBC 10.93, hemoglobin 14.8, hematocrit 42.4 (on admission, his hemoglobin and hematocrit were 16.5 and 47.9), MCV 93.4, platelets 275,000. Chemistry: Sodium 138, potassium 3.5, chloride 94, CO2 of 29, BUN 24, creatinine 1.2, glucose 127. Total bilirubin 1.50, AST 18, ALT 11, alkaline phosphatase 80, lipase 50. Stool for occult blood on admission was positive. ASSESSMENT AND PLAN: 1. Nausea and vomiting. 2. Abdominal pain. 3. Hemoccult-positive stool. 4. Constipation. The patient has been given laxatives. He had a liquid, black stool reported by him today, which was incontinent. 5. History of pancreatitis. Pancreatic enzymes were normal this admission, and CT scan did not show evidence of pancreatitis. His CT scan showed [id number] constipation. Laxatives have been ordered. Other findings showed questionable mild thickening of the distal esophageal wall. The patient is continuing to have some nausea, vomiting, and abdominal pain with Hemoccult- positive stool. Hemoglobin and hematocrit are stable. Will proceed with esophagogastroduodenoscopy for further evaluation. I have discussed the procedure, along with benefits and risks with the patient, and he wishes to proceed. Further plans will be made according to findings. I have discussed this case with Dr. Méndez. Dictated by MANDY Rojas for Thiago Méndez MD cc: MANDY Herbert MD
[2019-03-26] MEDS ORDERED: NICODERM PATCH TD ONE (15:37)
--- NOTE | 2019-03-26 18:04 | PROGRESS NOTE ---
DATE: 03/26/2019 SUBJECTIVE: I have seen and examined Mr. Mckay today. Mr. Mckay refers that he has not had any more vomiting, but his stool was also dark early on today. He has been evaluated by GI, and to continue to observe. There is a plan to do an EGD. OBJECTIVE: Vital signs: Blood pressure is 140/108, pulse of 92, respirations 18, and temperature 98.3 degrees. The patient is saturating 100% on room air. General: Mr. Mckay is a 49-year- old gentleman. He is in bed in no distress. Mucosa is pink and moist. Anicteric. Acyanotic. Neck: Supple. Chest: Clear to auscultation. Cardiovascular: Regular rate and rhythm. GI: Abdomen is soft. He is minimally tender in the mid abdomen. Mild guarding but no rebound. Bowel sounds present. Extremities: No pedal edema. 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 No focal deficit. LABORATORY DATA: Hemoglobins have been fairly stable. No chemistry for this morning. Occult blood testing was positive. ASSESSMENT: 1. Coffee-ground emesis with melenic stool concerning for upper GI bleed. The patient's hemoglobin and hematocrits have remained fairly stable. He has been evaluated. GI plans to do an EGD hopefully in the morning. 2. History of alcohol-induced pancreatitis. 3. Marijuana use. 4. Nicotine use and abuse. Patient has been off the nicotine patch. cc: Enrico Britton MD
[2019-03-26] MEDS: PERICOLACE PO SCH (19:56)
[2019-03-27] MEDS: MORPHINE IV PRN ×4 (00:58→16:21)
[2019-03-27] MEDS: PERICOLACE PO SCH ×2 (03:53→20:16)
[2019-03-27] MEDS: PROTONIX PO SCH ×2 (06:33→20:15)
[2019-03-27] MEDS: HUMALOG SUBQ SCH ×4 (06:37→23:19)
[2019-03-27] MEDS: NICODERM PATCH TD SCH (08:39)
[2019-03-27] MEDS: MIRALAX PO SCH (08:39)
[2019-03-27] MEDS ORDERED: DIPRIVAN 1% ONE ×3 (15:23→15:31)
[2019-03-27] MEDS ORDERED: XYLOCAINE-MPF 2% ONE (15:23)
[2019-03-27] MEDS ORDERED: FENTANYL ONE (15:24)
--- NOTE | 2019-03-27 15:53 | ENDOSCOPY OPERATIVE NOTE ---
[facility] ENDOSCOPY OPERATIVE NOTE , EGD PROCEDURE REPORT PATIENT: Neri Mckay ADMISSION DATE: 03/27/2019 MR#: [id number] : 1970 PROCEDURE DATE: 03/27/2019 SURGEON: Thiago Méndez MD STATUS: inpatient [facility] OPERATOR: Anabel Pickett and James Wilkins PREOPERATIVE DIAGNOSIS: The patient is a 49 yr old male here for an EGD due to epigastric abdominal pain, nausea, and vomiting. PROCEDURE PERFORMED: EGD w/ biopsy MEDICATIONS: Per Anesthesia TOPICAL ANESTHETIC: none CONSENT: The patient understands the risks and benefits of the procedure and understands that these r isks include, but are not limited to: sedation, allergic reaction, infection, perforation and/or bleeding. Alternative means of evaluation and treatment include, among others: physical exam, x-rays, and/or surgical intervention. The patient elects to proceed with this endoscopic procedure. HISORY AND PHYSICAL: 03/27/2019 DESCRIPTION OF PROCEDURE: During intra-op preparation period all mechanical and medical equipment was checked for proper function. Hand hygiene and appropriate measures for infection prevention was taken. After the risks, benefits and alternatives of the procedure were thoroughly explained, Informed consent was verified, confirmed and timeout was successfully executed by the treatment team. The patient was anesthetized with topical anesthesia and the Pentax [id number] endoscope was introduced through the mouth and advanced to the second portion of the duodenu m. Retroflexion was performed in the stomach and revealed no abnormalities. The gastroscope was then slowly withdraw n and removed. ESOPHAGUS: Reflux esophagitis was found in the lower third of the esophagus. Esophagitis was LA Clas s C: Mucosal breaks continuous between > 2 mucosal folds, but involving less than 75% of the esophageal circumference. M ultiple biopsies were performed using cold forceps. Sample sent for histology. The esophagus was otherwise normal. STOMACH: The mucosa of the stomach appeared normal. DUODENUM: The duodenal mucosa showed no abnormalities. SPECIMENS REMOVED: No ADVERSE EVENTS: There were no complications. POSTOPERATIVE DIAGNOSIS: 1. Reflux esophagitis in the lower third of the esophagus; multiple bio psies were performed 2. The esophagus was otherwise normal 3. The mucosa of the stomach appeared normal 4. The duodenal mucosa showed no abnormalities RECOMMENDATIONS: 1. Start Proton pump inhibitor twice daily - 30 minutes before a meal 2. Start taking the following medications as prescribed: Carafate. 3. Avoid non-steroid anti-inflammatory drugs 4. Follow-up biopsy results in 2 weeks 5. Follow up with GI Doctor in 2 months REPEAT EXAM: Thiago Méndez MD eSigned: Thiago Méndez MD 03/27/2019 3:53 PM cc: PATIENT NAME: Neri Mckay MR#: [id number]
[2019-03-27] MEDS: CARAFATE PO SCH (16:21)
[2019-03-27] MEDS ORDERED: RELISTOR SUBQ ONE (16:36)
[2019-03-27] MEDS ORDERED: CREON PO PRN (17:15)
[2019-03-27] MEDS: BENTYL IM SCH (17:22)
--- NOTE | 2019-03-27 17:53 | PROGRESS NOTE ---
DATE: 03/27/2019 SUBJECTIVE: I have seen and examined Mr. Mckay today. Mr. Mckay refers to continue having pain especially to the left side of the lower abdomen to the flank. He was waiting for his EGD. OBJECTIVE: Vital signs: Blood pressure 148/96, pulse of 85, respirations 18, and temperature 98.6 degrees. General: Mr. Mckay is a 49-year-old gentleman. He is in bed in no distress. HEENT: Mucosa is pink and moist. Anicteric. Acyanotic. Neck: Supple. Chest: Good air entry bilaterally. There were no crepitations. No rhonchi. Cardiovascular: Regular rate and rhythm. No murmurs, no rubs, no gallops. GI: Abdomen was soft. Minimally tender in the left lower abdomen, but there was no guarding. No rebound. Extremities: No pedal edema. 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 There is no focal deficit. LABORATORY DATA: None for today. The EGD result shows normal esophagus, mild reflux esophagitis in the lower third. Mucosa of the stomach and duodenum showed no abnormality. ASSESSMENT: 1. Coffee-ground emesis on presentation resolved. 2. Reflux esophagitis on EGD. The patient has been started on PPI, and Carafate has been recommended. 3. History of alcohol-induced pancreatitis in the past. 4. Marijuana use. 5. Tobacco use and abuse. Patient has been offered nicotine patch. 6. Constipation, presumably from chronic narcotic use. We will discontinue the morphine. I will use a non opioid containing pain medicine for his abdominal pain which seems to be actually related to the constipation. We will also start the patient on bowel regimen. 7. Chronic pain syndrome. Patient follows up with Dr. Esteban Hanley. He tells me that he is on chronic Xanax, Flexeril, [place] 10 and p.r.n. at home. cc: Enrico Britton MD [facility]
[2019-03-27] MEDS: OFIRMEV 1000 MG/ISOTONIC SOLN 1,000 MG/100 ML BOTTLE IV PRN (20:15)
[2019-03-27] MEDS: XANAX PO SCH (20:16)
[2019-03-27] MEDS: FLEXERIL PO SCH (20:16)
[2019-03-27] MEDS: CATAPRES PO SCH (20:16)
[2019-03-27] MEDS: NORVASC PO SCH (20:16)
[2019-03-27] MEDS: LACTULOSE PO SCH (20:18)
[2019-03-27] MEDS ORDERED: INSULIN PEN NEEDLES ONE (23:01)
[2019-03-27] MEDS: NOVOLOG MIX 70/30 SUBQ SCH (23:18)
[2019-03-28] MEDS: HUMALOG SUBQ SCH ×4 (07:08→21:36)
[2019-03-28] MEDS: LACTULOSE PO SCH ×2 (08:59→21:37)
[2019-03-28] MEDS: MIRALAX PO SCH (08:59)
[2019-03-28] MEDS: NORVASC PO SCH ×2 (08:59→21:37)
[2019-03-28] MEDS: XANAX PO SCH ×2 (08:59→21:38)
[2019-03-28] MEDS: CATAPRES PO SCH ×2 (08:59→21:38)
[2019-03-28] MEDS: OFIRMEV 1000 MG/ISOTONIC SOLN 1,000 MG/100 ML BOTTLE IV PRN ×3 (08:59→23:06)
[2019-03-28] MEDS: FLEXERIL PO SCH ×2 (09:00→21:38)
[2019-03-28] MEDS: CARAFATE PO SCH ×3 (09:00→17:02)
[2019-03-28] MEDS: PRINZIDE 20/12.5MG PO SCH (09:00)
[2019-03-28] MEDS: FLOMAX PO SCH (09:00)
[2019-03-28] MEDS: NICODERM PATCH TD SCH (09:00)
[2019-03-28] MEDS: PROTONIX PO SCH ×2 (09:00→21:38)
[2019-03-28] MEDS: BENTYL IM SCH ×3 (09:01→17:49)
[2019-03-28] MEDS: NOVOLOG MIX 70/30 SUBQ SCH ×2 (09:03→21:36)
[2019-03-28] MEDS: CREON PO SCH ×3 (09:11→17:02)
--- NOTE | 2019-03-28 17:40 | PROGRESS NOTE ---
DATE: 03/28/2019 SUBJECTIVE: Saw and examined Mr. Mckay today. Mr. Mckay continues to complain of left- sided abdominal discomfort but no coffee-grounds emesis. He still has not had a bowel movement. OBJECTIVE: Vital signs: Blood pressure is 115/85, pulse of 98, respiration is 19, temperature 97.3 degrees. Patient is saturating 97%. General: Mr. Mckay is a 49-year-old gentleman. He is in bed, no distress. HEENT: Mucosa is pink and moist. Anicteric. Acyanotic. Neck: Supple. Chest: Clear to auscultation. There were no crepitations, no rhonchi. Cardiovascular: Regular rate and rhythm. GI: Abdomen was soft. Minimally tender in the right lower quadrant, but there was no guarding, no rebound. Extremities: No pedal edema. 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 There is no focal deficit. LABORATORY DATA: No laboratory data this morning. Glucose was 90 early on today. CURRENT MEDICATIONS: Have all been reviewed, no changes. ASSESSMENT: 1. Coffee-grounds emesis on presentation, resolved. The patient is status post EGD which showed reflux esophagitis. He has been started on PPI and Carafate. 2. History of chronic alcohol-induced pancreatitis. 3. Marijuana use and abuse. Patient has been counseled. 4. Tobacco use and abuse. 5. Constipation, presumably from chronic narcotic use. The patient continues to be constipated, has not had a bowel movement. We will continue with the bowel regimen. 6. Chronic pain syndrome. The patient follows up with Dr. Hanley. For now we have withheld the narcotics because of the remarkable constipation. PLAN: So in general, I think Mr. Mckay is fairly stable. No more coffee- grounds emesis. Still symptomatic with abdominal discomfort, which we think is related to the constipation. We will wait for a bowel movement. Hopefully after that we can get him discharged. cc: Enrico Britton MD [facility]
[2019-03-28] MEDS: PERICOLACE PO SCH (21:37)
[2019-03-29] MEDS ORDERED: DULCOLAX PR ONE (05:39)
[2019-03-29] MEDS: HUMALOG SUBQ SCH ×2 (06:46→11:25)
[2019-03-29] MEDS: LACTULOSE PO SCH (08:47)
[2019-03-29] MEDS: BENTYL IM SCH (08:47)
[2019-03-29] MEDS: XANAX PO SCH (08:47)
[2019-03-29] MEDS: CATAPRES PO SCH (08:48)
[2019-03-29] MEDS: PROTONIX PO SCH (08:48)
[2019-03-29] MEDS: NICODERM PATCH TD SCH (08:48)
[2019-03-29] MEDS: CARAFATE PO SCH ×2 (08:48→14:43)
[2019-03-29] MEDS: MIRALAX PO SCH (08:48)
[2019-03-29] MEDS: FLEXERIL PO SCH (08:48)
[2019-03-29] MEDS: CREON PO SCH ×2 (08:48→14:42)
[2019-03-29] MEDS: FLOMAX PO SCH (08:48)
[2019-03-29] MEDS: PRINZIDE 20/12.5MG PO SCH (08:48)
[2019-03-29] MEDS: NORVASC PO SCH (08:48)
[2019-03-29] MEDS: NOVOLOG MIX 70/30 SUBQ SCH (08:49)
[2019-03-29] MEDS: OFIRMEV 1000 MG/ISOTONIC SOLN 1,000 MG/100 ML BOTTLE IV PRN (08:58)
[2019-03-29] MEDS ORDERED: GLYCERIN ADULT PR ONE (09:52)
[2019-03-29] MEDS ORDERED: GOLYTELY PO ONE (10:00)
[2019-03-29 11:49] VITALS: BP 128/76
--- NOTE | 2019-03-29 13:13 | Diag Imaging Result Doc PS360 ---
EXAM: CT ABD/PELVIS W/IV CONT ONLY 03/29/2019 HISTORY: persistent lower left abdomen pain TECHNIQUE: This exam was performed using automated exposure control, adjustment of mA or kV according to patient size, and/or use of iterative reconstruction technique. COMMENT: There is some fibrotic change in the posterior costophrenic sulcus of the right lower lobe which has not changed since 03/24/2019. Has been no significant change since 10/14/2018. There are retained gastric contents. There is no evidence of cholelithiasis. The liver is unremarkable. There are granulomata in the spleen. The adrenal glands are not enlarged. The kidneys are without evidence of hydronephrosis or mass. The aorta is not distended. The pancreas is unremarkable. There is stool throughout the colon. The small bowel is not distended. There is no evidence of significant adenopathy. Pelvis: The appendix is normal in appearance. There is stool in the rectosigmoid colon and there are some diverticula without evidence of diverticulitis. The urinary bladder is not distended. There is no evidence of free fluid. There are bilateral fat-containing inguinal hernias. There are degenerative changes in the facets at L4-5. There is no evidence of acute bony abnormality. IMPRESSION: Constipation. No evidence of acute disease. Electronically signed by Douglas Nash 03/29/2019 1:11 PM
[2019-03-29] MEDS ORDERED: BENTYL IM SCH (15:00)
--- NOTE | 2019-03-29 16:18 | GASTROENTEROLOGY PROGRESS NOTE ---
DATE: 03/29/2019 SUBJECTIVE: Patient states he has had only a small bowel movement. He has had several laxatives yesterday. He does take pain medication for chronic back pain. He had an EGD on 03/27/2019 for abdominal pain, nausea, vomiting, hematemesis. Findings showed reflux esophagitis in the lower 3rd of the esophagus. He is currently taking a PPI and Carafate. OBJECTIVE: Vital Signs: Temperature 98.4 degrees, pulse 72, respirations 16, blood pressure 161/86. General: Patient is awake and alert, in no acute distress. He is complaining of some abdominal pain and complaining of constipation. He has only had a small bowel movement after laxatives yesterday. LABORATORY: Lab from 03/26/2019: Hemoglobin and hematocrit 14.8 and 42.4, glucose 246. ASSESSMENT: 1. Recent hematemesis. 2. Abdominal pain. 3. Constipation. 4. Chronic pain syndrome, on chronic pain medication use. 5. History of marijuana use. PLAN: The patient's EGD showed esophagitis. Continue PPI and Carafate for constipation since he has had only a small amount of results from multiple laxatives, we will give him 1 to 2 L of GoLYTELY or more if needed to start having bowel movements and also give a glycerin suppository. Further plans will be made according to results of pathology from esophageal biopsy pending. We will follow up on results as an outpatient. Recommended patient once discharged to call and make an outpatient appointment. I have discussed this case with Dr. Méndez. Dictated by MANDY Rojas for Thiago Méndez MD cc: MANDY Herbert MD
--- NOTE | 2019-03-30 02:04 | DISCHARGE SUMMARY ---
ADMISSION DATE: 03/24/2019 DISCHARGE DATE: 03/29/2019 PATIENT DISPOSITION: Home. FOLLOW-UP: 1. Dr. Esteban Hanley. 2. Dr. Méndez. CONSULTATION DURING THIS ADMISSION: GI was consulted. Patient was seen by Dr. Méndez. INVASIVE PROCEDURES DONE DURING THIS ADMISSION: EGD was done by Dr. Méndez. Reflux esophagitis was found. Otherwise normal stomach and duodenal mucosa. ADMISSION DIAGNOSIS: Hematemesis. DIAGNOSIS AT THE TIME OF DISCHARGE: 1. Coffee-ground emesis on presentation, resolved. 2. Reflux esophagitis. 3. History of chronic alcohol induced pancreatitis. 4. Marijuana use and abuse. 5. Tobacco use and abuse. 6. Constipation secondary to chronic narcotic use. 7. Chronic pain syndrome on chronic narcotic. DISCHARGE MEDICATIONS: 1. Alprazolam 1 mg b.i.d. 2. Flexeril 10 mg b.i.d. 3. Flomax 0.4 p.o. daily. 4. Metformin 500 p.o. b.i.d. 5. Amlodipine 2.5 p.o. b.i.d. 6. Clonidine 0.1 b.i.d. 7. MiraLAX 17 g p.o. daily. 8. [place] 10 mg p.o. daily. 9. Insulin 70/30 35 units in the morning and 15 units in the evening. 10. Movantik 12.5 p.o. daily. 11. NicoDerm nicotine patch. 12. Karissa Colace 2 tablets at bedtime. 13. Carafate 1 g p.o. three times per day. 14. Lactulose 30 mL b.i.d. 15. Pantoprazole 40 mg b.i.d. PRESENTING COMPLAINT: Hematemesis. HISTORY OF PRESENTING COMPLAINT: Mr. Mckay is a 49-year-old gentleman known to have alcohol-induced chronic pancreatitis, hypertension, diabetes, came to the emergency department because of abdominal pain associated with coffee-ground emesis. Upon presentation, Mr. Mckay was evaluated and admitted for further medical care. HOSPITAL COURSE: Mr. Mckay was admitted to the medical floor, was adequately fluid resuscitated, hemoglobin was trended throughout the hospital stay, which for most part remained stable. Chemistry was also stable. Mr. Mckay was started on IV PPI and GI was consulted. He was seen by Dr. Méndez. The abdominal pain did not really improve so EGD was done which only showed esophagitis. Multiple biopsies were taken. At the time of dictation, the result of the biopsy was not ready. Mr. Mckay continued to have abdominal pain. He was started on multiple bowel regimen, but did not really improve. A repeat CT scan was done today which only showed constipation, otherwise no acute disease. GI gave him GoLYTELY and he did have adequate bowel movement, after which he felt better and we thought he was stable to be discharged. He is supposed to follow up with Dr. Méndez. Mr. Mckay has also been advised to be extremely judicious with the use of narcotics since we think that is the cause of his constipation. Time spent for discharge is 35 minutes. cc: MD Thiago Hancock MD Moses Awoniyi, MD
== END 2019-03-29 15:29 | disposition home or self-care (01) | DRG 378 ==
LOC: P.ED 21:04 → EDIPHOLD 03-25 03:50 → SUATTDRO 03-25 03:50 → 4N 03-25 08:14
PROVIDERS: ATTEND Internal Medicine